=== PATIENT | female | born 1935 | race Caucasian/White ===

== ENCOUNTER 2016-04-13 17:53 | Emergency (ER) | payer OTHER, MEDICARE ==
[2016-04-13 17:58] VITALS: BP 177/78; PULSE 79; TEMP 98.3; BMI 26.2
--- NOTE | 2016-04-13 18:19 | PDOC ---
History of Present Illness - General History Source: Patient, Family, Old Records Exam Limitations: No Limitations - History of Present Illness Initial Comments: 04/13/16 18:49 The patient is a 81 year old female with a significant past medical history of suc-vqbyemz-jokmsyahg diabetes and hypertension (on medication) who presents to the emergency department today for further evaluation of left wrist pain for one hour. The patient states that she was bringing her recycling in when she tripped and braced herself with her left hand against the door. The patient states that when her left hand made contact with the door she heard a crunch in her left wrist. The patient reports associated swelling in her left wrist. The patient reports that she did not hit the ground. The patient denies head trauma, LOC, or dizziness. The patient denies fever, chills, and sweats. The patient denies nausea, vomiting, and diarrhea. The patient denies chest pain, cough, and shortness of breath. PCP: Dr. Popeye Hendricks [phone] PAST MEDICAL HISTORY: eo-aptbzze-udkzzhzly diabetes, hypertension PAST SURGICAL HISTORY: No significant history reported FAMILY HISTORY: No pertinent history reported SOCIAL HISTORY: None reported MEDICATIONS: Reviewed ALLERGIES: As per nursing notes <Allen Blood - Last Filed: 04/13/16 20:54> - General History Source: Patient Exam Limitations: No Limitations <Aurelia Yadav - Last Filed: 04/16/16 07:38> - General Chief Complaint: Pain, Acute Stated Complaint: LEFT WRIST PAIN Time Seen by Provider: 04/13/16 18:10 Past History <Allen Blood - Last Filed: 04/13/16 20:54> - Past Medical History Anemia: No Asthma: No Cancer: Yes (RIGHT BREAST 2006) Cardiac Disorders: No CVA: No COPD: No CHF: No Dementia: No Diabetes: Yes (2009, [id number]) GI Disorders: No Disorders: No HTN: Yes Hypercholesterolemia: Yes Liver Disease: No Seizures: No Thyroid Disease: Yes (GOITER-NO MEDS) - Surgical History Abdominal Surgery: No Appendectomy: No Cardiac Surgery: No Cholecystectomy: No Lung Surgery: No Neurologic Surgery: No Orthopedic Surgery: No - Immunization History Td Vaccination: No TDAP Vaccination: No Immunization Up to Date: No - Psycho/Social/Smoking Cessation Hx Anxiety: Yes Suicidal Ideation: No Smoking Status: Yes Smoking History: Former smoker Have you smoked in the past 12 months: No Number of Cigarettes Smoked Daily: 0 If you are a former smoker, when did you quit?: 1960S Information on smoking cessation initiated: No Hx Alcohol Use: No Drug/Substance Use Hx: No Substance Use Type: None Hx Substance Use Treatment: No <Aurelia Yadav - Last Filed: 04/16/16 07:38> - Past Medical History Allergies/Adverse Reactions: Allergies Allergy/AdvReac Type Severity Reaction Status Date / Time bacitracin Allergy Intermediate Verified 04/13/16 17:54 erythromycin base Allergy Intermediate Rash Verified 04/13/16 17:54 [Erythromycin Base] Penicillins Allergy Intermediate Rash Verified 04/13/16 17:54 tetracycline [Tetracycline] Allergy Intermediate Rash Verified 04/13/16 17:54 streptomycin [Streptomycin] Allergy Verified 04/13/16 17:54 Vglwont-Zcj-Jmj Reductase AdvReac Intermediate myalgias Verified 04/13/16 17:54 Inhibitor Home Medications: Ambulatory Orders Glimepiride 1 mg PO DAILY 01/28/12 Losartan Potassium 25 mg PO DAILY 05/11/15 Cholecalciferol (Vitamin D3) [Vitamin D3] 1,000 unit PO DAILY tablet 05/17/15 Review of Systems - Review of Systems Able to Perform ROS?: Yes Comments:: 04/13/16 18:49 GENERAL/CONSTITUTIONAL: No: fever, chills, weakness, loss of appetite. HEAD, EYES, EARS, NOSE AND THROAT: No: change in vision, ear pain, discharge, sore throat, throat swelling. CARDIOVASCULAR: No: chest pain, lightheadedness, palpitations, syncope RESPIRATORY: No: cough, shortness of breath, wheezing, hemoptysis, stridor. GASTROINTESTINAL: No: nausea, vomiting, abdominal cramping, diarrhea, rectal bleeding, constipation. GENITOURINARY: No: dysuria, hematuria, frequency, urgency, flank pain. MUSCULOSKELETAL: Yes: Left wrist pain and swelling. No: back pain, neck pain. SKIN: No: lesions, pallor, rash or easy bruising. NEUROLOGIC: No: headache, vertigo, paresthesias, weakness ENDOCRINE: No: unexplained weight gain or loss HEMATOLOGIC/LYMPHATIC: No: anemia, easy bleeding, swelling nodes <Allen Blood - Last Filed: 04/13/16 20:54> *Physical Exam - Vital Signs Last Vital Signs Temp Pulse Resp BP Pulse Ox 98.3 F 79 18 177/78 100 04/13/16 17:53 04/13/16 17:53 04/13/16 17:53 04/13/16 17:53 04/13/16 17:53 - Physical Exam Comments: 04/13/16 19:31 GENERAL: The patient is in no acute distress. HEAD: Normal with no signs of trauma. EYES: PERRLA, EOMI, sclera anicteric, conjunctiva clear. ENT: Ears normal, nares patent, oropharynx clear without exudates. Moist mucous membranes. NECK: Normal range of motion, supple without lymphadenopathy, JVD, or masses. LUNGS: Breath sounds equal, clear to auscultation bilaterally. No wheezes, and no crackles. HEART:Regular rate and rhythm, normal S1 and S2 without murmur, rub or gallop. ABDOMEN: Soft, nontender, normoactive bowel sounds. No guarding, no rebound. EXTREMITIES: (+) Left hand Dorsum proximum metacarpal swelling and tenderness. Limited ROM at wrist. Radial medial and ulner motor and sensation intact. Slightly limited by pain Normal range of motion, no edema. No clubbing or cyanosis. NEUROLOGICAL: Cranial nerves II through XII grossly intact. Normal speech. No focal neurological deficits. MUSCULOSKELETAL: Back nontender to palpation, no CVA tenderness SKIN: Warm, Dry, normal turgor, no rashes or lesions noted. <Allen Blood - Last Filed: 04/13/16 20:54> - Vital Signs Last Vital Signs Temp Pulse Resp BP Pulse Ox 98.3 F 79 18 177/78 100 04/13/16 17:53 04/13/16 17:53 04/13/16 17:53 04/13/16 17:53 04/13/16 17:53 <Aurelia Yadav - Last Filed: 04/16/16 07:38> Procedures - Splinting Splint Location: Left: Wrist Pre-Proc Neuro Vasc Exam: normal Hand-Made Type: orthoglass Splint Type: Yes: Thumb Spica Post-Proc Neuro Vasc Exam: normal Gerardo Bandage: yes Sling: Yes Complications: No <Aurelia Yadav - Last Filed: 04/16/16 07:38> ED Treatment Course - RADIOLOGY Radiology Studies Ordered: Category Date Time Status WRIST-LEFT [RAD] Stat Radiology 04/13/16 17:58 Ordered <Aurelia Yadav - Last Filed: 04/16/16 07:38> Medical Decision Making - Medical Decision Making 04/13/16 20:53 Wrist X-ray Impression: No fracture or acute pathology. Read and interpreted by radiologist Dr. Lincoln Boland MD. <Allen Blood - Last Filed: 04/13/16 20:54> - Medical Decision Making 04/13/16 18:19 A portion of this note was documented by scribe services under my direction. I have reviewed the details of the note, within reason, and agree with the documentation with the following case summary and management plan written by me. Nursing documentation reviewed and incorporated into medical decision making 04/13/16 19:04 This is an 81 yo F with a history of DM, HTN, HLD left hand dominant who presents to the ER with a complaint of left hand trauma She was returning home While walking up the stairs, she tripped, struck her hand No head trauma No LOC No Amnesia Pt presents due to pain over the dorsum of the left hand She has an area of swelling over the proximal 2nd metacarpal sensation intact Motor limited due to pain 2+ RP 2+ UP 04/13/16 19:05 Xray does not seem to demonstrate a fracture given swelling, will place in splint Will discharge to home Pt has seen Dr. Mackenzie in the past She will be going to [place] in 2 days and will be away for 1 week she will follow up when she returns Thumb spica applied Pt given instructions re: when to remove this splint (swelling, pain, color change, temperature change) <Aurelia Yadav - Last Filed: 04/16/16 07:38> *DC/Admit/Observation/Transfer - Attestations Scribe Attestion: 04/13/16 18:50 Documentation prepared by Allen Blood, acting as medical charge entry specialist for Aurelia Yadav MD. <Allen Blood - Last Filed: 04/13/16 20:54> - Discharge Dispostion Admit: No <Aurelia Yadav - Last Filed: 04/16/16 07:38> Diagnosis at time of Disposition: Wrist pain, acute Qualifiers: Laterality: left Qualified Code(s): M25.532 - Pain in left wrist - Discharge Dispostion Disposition: HOME Condition at time of disposition: Stable - Referrals Referrals: Popeye Hendricks MD [Primary Care Provider] - Chris Pimentel MD [Staff Physician] - - Patient Instructions Printed Discharge Instructions: DI for Wrist Pain Additional Instructions: Marianne Thank you for coming in to the ER today Your x ray appears normal but you do have swelling over the distal wrist/ proximal metacarpals Please wear splint as is comfortable for you If your pain worsens, please keep the splint on You must follow up with Dr Emery when you return
== END 2016-04-13 19:41 | disposition home or self-care (01) ==
LOC: FER 17:53
PROC: 2W3FX1Z Immobilization of Left Hand using Splint (ICD-10-PCS; principal; 2016-04-13)
DX: M25.532 Pain in left wrist (principal); W22.01XA Walked into wall, initial encounter; Y93.89 Activity, other specified; Y92.009 Unspecified place in unspecified non-institutional (private) residence as the place of occurrence of the external cause; E11.9 Type 2 diabetes mellitus without complications; I10 Essential (primary) hypertension; E78.00 Pure hypercholesterolemia, unspecified; E07.9 Disorder of thyroid, unspecified; Z87.891 Personal history of nicotine dependence
CPT/HCPCS: 29125; 73110-TC-LT; 99282-25

== ENCOUNTER 2017-01-13 11:38 | Emergency (ER) | payer OTHER, MEDICARE ==
--- NOTE | 2017-01-13 11:42 | PDOC ---
History of Present Illness - General Stated Complaint: L WRIST AND ELBOW INJURY Time Seen by Provider: 01/13/17 11:42 - History of Present Illness Initial Comments: 01/13/17 12:24 81yo female with a mechanical fall at home. States she was walking when she tripped over an electrical cord which was on the floor. States she fell onto her L arm and now c/o L wrist, forearm, elbow pain. States she also hit her L knee. States she has injuryed her L wrist before (fracture back in March) and presents wearing a velcro brace to L wrist. Pt with FROM of elbow and wrist. Pt denies hitting her head. No loc. No neck or back pain. No cp/sob/ palpitations. No lightheaded or dizziness. No weakness. No paresthesias. Pt denies f/c. No abd pain. No n/v/d. No dysuria. States chronic pain to hips and knees, but no new pain. No neck or back pain. Denies all other complaints. 01/13/17 12:27 PMH: HLD, HTN, DM, CKD PSHx: L shoulder sx 01/13/17 12:28 PCP: Dr. Popeye Hendricks [phone] 01/13/17 12:46 Past History - Past Medical History Allergies/Adverse Reactions: Allergies Allergy/AdvReac Type Severity Reaction Status Date / Time bacitracin Allergy Intermediate Verified 01/13/17 12:38 erythromycin base Allergy Intermediate Rash Verified 01/13/17 12:38 [Erythromycin Base] Penicillins Allergy Intermediate Rash Verified 01/13/17 12:38 tetracycline [Tetracycline] Allergy Intermediate Rash Verified 01/13/17 12:38 streptomycin [Streptomycin] Allergy Verified 01/13/17 12:38 Orylcpg-Mgj-Jof Reductase AdvReac Intermediate myalgias Verified 01/13/17 12:38 Inhibitor Home Medications: Ambulatory Orders Cholecalciferol (Vitamin D3) [Vitamin D3] 1,000 unit PO DAILY tablet 05/17/15 Metoprolol Succinate 25 mg PO AM tablet 11/22/16 Anemia: No Asthma: No Cancer: Yes (RIGHT BREAST 2006) Cardiac Disorders: No CVA: No COPD: No CHF: No Dementia: No Diabetes: Yes (2009, [id number]) GI Disorders: No Disorders: No HTN: Yes Hypercholesterolemia: Yes Liver Disease: No Seizures: No Thyroid Disease: Yes (GOITER-NO MEDS) - Surgical History Abdominal Surgery: No Appendectomy: No Cardiac Surgery: No Cholecystectomy: No Lung Surgery: No Neurologic Surgery: No Orthopedic Surgery: No - Immunization History Td Vaccination: No TDAP Vaccination: No Immunization Up to Date: No - Suicide/Smoking/Psychosocial Hx Smoking Status: Yes Smoking History: Former smoker Have you smoked in the past 12 months: No Number of Cigarettes Smoked Daily: 0 If you are a former smoker, when did you quit?: 1960S Hx Alcohol Use: No Drug/Substance Use Hx: No Substance Use Type: None Hx Substance Use Treatment: No Review of Systems - Review of Systems Able to Perform ROS?: Yes Is the patient limited Cymraes proficient: No Constitutional: No: Chills, Fever, Weakness HEENTM: No: Blurred Vision, Nose Congestion, Throat Pain Respiratory: No: Cough, Shortness of Breath Cardiac (ROS): No: Chest Pain, Edema, Irregular Heart Rate ABD/GI: No: Diarrhea, Nausea, Vomiting : No: Burning, Dysuria, Frequency, Urgency Musculoskeletal: Yes: Joint Pain, Other (LUE pain to wrist, forearm, humerus). No: Back Pain, Neck Pain Integumentary: No: Rash Neurological: No: Headache, Numbness, Paresthesia, Weakness, Unsteady Gait, Ataxia, Dizziness All Other Systems: Reviewed and Negative *Physical Exam - Vital Signs 01/13/17 12:47 Selected Entries 01/13/17 11:39 Temperature 97.4 F L Pulse Rate 89 Respiratory 20 Rate Blood Pressure 111/34 O2 Sat by Pulse 96 Oximetry (%) Weight 68.039 kg - Physical Exam General Appearance: Yes: Nourished, Appropriately Dressed. No: Apparent Distress HEENT: positive: EOMI. negative: Rhinorrhea Neck: positive: Trachea midline, Supple, Other (no midline ttp of cervical spine , FROM of cervical spine). negative: Tender Respiratory/Chest: positive: Lungs Clear, Normal Breath Sounds. negative: Respiratory Distress, Crackles, Rales, Rhonchi, Wheezing Cardiovascular: positive: Regular Rhythm, Regular Rate, S1, S2 Vascular Pulses: Dorsalis-Pedis (R): 2+, Doralis-Pedis (L): 2+ Gastrointestinal/Abdominal: positive: Normal Bowel Sounds, Soft. negative: Distended, Tenderness Musculoskeletal: positive: Other (no midline t or L spine ttp, no stepoffs or deformities). negative: CVA Tenderness (R), CVA Tenderness (L), Vertebral Tenderness Extremity: positive: Normal Capillary Refill, Other (ttp over L mid forearm, ttp over radial head and olecranon at elbow, ttp distal humerus, FROM of shoulder, radial pulses intact, sensation intact, no ttp over anatomic snuff box , FROM of elbow and wrist. ) Integumentary: positive: Normal Color, Dry, Warm. negative: Ecchymosis, Bruising Neurologic: positive: nurse informaticist II-XII NML intact, Fully Oriented, Alert, Motor Strength 5/5. negative: Sensory Deficit Medical Decision Making - Medical Decision Making 01/13/17 11:58 a/p: 81yo female with a mechanical fall over an electrical wire -no head injury -no neck or back pain -xrays to LUE -denies wanting pain meds -no other somatic complaints. Ambulated into the ED 01/13/17 12:39 xrays reviewed. No acute fracture. 01/13/17 12:51 discussed all imaging results with the patient. Recommended RICE to the forearm. Discussed all reasons to return to the ED and need for follow up with her PMD. Pt stable for d/c to home. Answered all questions. *DC/Admit/Observation/Transfer Diagnosis at time of Disposition: Wrist pain, acute, Fall, Elbow pain - Discharge Dispostion Disposition: HOME Condition at time of disposition: Stable Admit: No - Referrals Referrals: Popeye Hendricks MD [Staff Physician] - - Patient Instructions Printed Discharge Instructions: DI for Elbow Pain, DI for Wrist Pain Additional Instructions: Please rest and ice your wrist and elbow. Please apply ice to the injured site, 20 min on and 20 min off. Please be careful when walking and avoid further falls. Please follow up with your PMD next week if the pain persists. Please return to the ED with any further concerns. - Post Discharge Activity
[2017-01-13 12:46] VITALS: BP 111/34; PULSE 89; TEMP 97.4; BMI 25.7
== END 2017-01-13 12:55 | disposition home or self-care (01) ==
LOC: FER 11:38
DX: M25.532 Pain in left wrist (principal); M25.522 Pain in left elbow; E78.5 Hyperlipidemia, unspecified; I12.9 Hypertensive chronic kidney disease with stage 1 through stage 4 chronic kidney disease, or unspecified chronic kidney disease; E11.22 Type 2 diabetes mellitus with diabetic chronic kidney disease; N18.9 Chronic kidney disease, unspecified; W18.09XA Striking against other object with subsequent fall, initial encounter; Y93.01 Activity, walking, marching and hiking; Y92.009 Unspecified place in unspecified non-institutional (private) residence as the place of occurrence of the external cause
CPT/HCPCS: 73060-TC-LT; 73090-TC-LT; 73110-TC-LT; 99281-25

== ENCOUNTER 2017-03-21 10:10 | Emergency (ER) | payer OTHER, MEDICARE ==
[2017-03-21 10:39] VITALS: BP 183/90; PULSE 100; TEMP 97.4; BMI 26.6
[2017-03-21] MEDS ORDERED: ACETAMINOPHEN 325 MG TABLET (FP) PO ONE (10:49)
[2017-03-21] MEDS ORDERED: ACETAMINOPHEN 325 MG TABLET (FP) ONE (10:51)
--- NOTE | 2017-03-21 12:15 | PDOC ---
History of Present Illness - General Chief Complaint: Back Pain Stated Complaint: RIGHT LOWER BACK PAIN X 2 DAYS Time Seen by Provider: 03/21/17 10:27 History Source: Patient Exam Limitations: No Limitations - History of Present Illness Initial Comments: 03/21/17 12:09 CHIEF COMPLAINT: Right lower back pain radiating to the right hip since yesterday. HISTORY OF PRESENT ILLNESS: Patient with history of diabetes on oral agents, well-controlled, with hemoglobin A1c in the sixes. Patient was doing well until yesterday, when she started to notice some pain in the right lower back down in the sacroiliac region. The pain radiates to the right hip. She is able to ambulate, but the pain does get worse with range of motion of the right hip. The pain also gets worse with turning or standing up. There is no radiation to the right leg. There is no numbness or weakness. There is no change in bowel or bladder function. REVIEW OF SYSTEMS: GENERAL/CONSTITUTIONAL: No fever or chills. No weakness. No weight change. HEAD, EYES, EARS, NOSE AND THROAT: No change in vision. No ear pain or discharge. No sore throat. CARDIOVASCULAR: No chest pain or shortness of breath. RESPIRATORY: No cough, wheezing, or hemoptysis. GASTROINTESTINAL: No nausea, vomiting, diarrhea or constipation. No rectal bleeding. GENITOURINARY: No dysuria, frequency, or change in urination. MUSCULOSKELETAL: Positive right lower back pain in the sacroiliac region. No joint pains in the extremities. No recent trauma. SKIN AND BREASTS: No rash or easy bruising. NEUROLOGIC: No headache, vertigo, loss of consciousness, or loss of sensation. PSYCHIATRIC: No depression or anxiety. ENDOCRINE: No increased thirst. No abnormal weight change. HEMATOLOGIC/LYMPHATIC: No anemia, easy bleeding, or history of blood clots. ALLERGIC/IMMUNOLOGIC: No hives or skin allergy. No latex allergy. Past History - Past Medical History Allergies/Adverse Reactions: Allergies Allergy/AdvReac Type Severity Reaction Status Date / Time bacitracin Allergy Intermediate Verified 03/21/17 10:22 erythromycin base Allergy Intermediate Rash Verified 03/21/17 10:22 [Erythromycin Base] Penicillins Allergy Intermediate Rash Verified 03/21/17 10:22 tetracycline [Tetracycline] Allergy Intermediate Rash Verified 03/21/17 10:22 streptomycin [Streptomycin] Allergy Verified 03/21/17 10:22 Afduqzz-Oni-Tqg Reductase AdvReac Intermediate myalgias Verified 03/21/17 10:22 Inhibitor Home Medications: Ambulatory Orders Cholecalciferol (Vitamin D3) [Vitamin D3] 1,000 unit PO DAILY tablet 05/17/15 Metoprolol Succinate 25 mg PO HS tablet 11/22/16 Glimepiride 1 mg PO HS 03/21/17 Oxycodone HCl/Acetaminophen [Oxycodone-Acetaminophen 5-325] 1 each PO ONCE 03/21 Vitamin B Complex 1 each PO DAILY 03/21/17 Anemia: No Asthma: No Cancer: Yes (RIGHT BREAST 2006) Cardiac Disorders: No CVA: No COPD: No CHF: No DVT: No Dementia: No Diabetes: Yes (2009, [id number]) GI Disorders: No Disorders: No HTN: Yes Hypercholesterolemia: Yes Liver Disease: No Seizures: No Thyroid Disease: Yes (GOITER-NO MEDS) - Surgical History Abdominal Surgery: No Appendectomy: No Cardiac Surgery: No Cholecystectomy: No Lung Surgery: No Neurologic Surgery: No Orthopedic Surgery: No - Immunization History Td Vaccination: No TDAP Vaccination: No Immunization Up to Date: No - Suicide/Smoking/Psychosocial Hx Smoking Status: Yes Smoking History: Former smoker Have you smoked in the past 12 months: No Number of Cigarettes Smoked Daily: 0 If you are a former smoker, when did you quit?: 1996 Information on smoking cessation initiated: No Hx Alcohol Use: No Drug/Substance Use Hx: No Substance Use Type: None Hx Substance Use Treatment: No *Physical Exam - Vital Signs Last Vital Signs Temp Pulse Resp BP Pulse Ox 97.4 F L 100 H 15 183/90 97 03/21/17 10:22 03/21/17 10:22 03/21/17 10:22 03/21/17 10:22 03/21/17 10:22 - Physical Exam Comments: 03/21/17 12:12 GENERAL: The patient is awake, alert, and fully oriented, in no acute distress. She is ambulatory without limp. HEAD: Normal with no signs of trauma. EYES: Pupils equal, round and reactive to light, extraocular movements intact, sclera anicteric, conjunctiva clear. ENT: Ears normal, nares patent, oropharynx clear without exudates. Moist mucous membranes. NECK: Normal range of motion, supple without lymphadenopathy, JVD, or masses. LUNGS: Breath sounds equal, clear to auscultation bilaterally. No wheezes, and no crackles. HEART: Regular rate and rhythm, normal S1 and S2 without murmur, rub or gallop. ABDOMEN: Soft, nontender, normoactive bowel sounds. No guarding, no rebound. No masses. BACK: There is right lower lumbar and sacroiliac tenderness to palpation. There is tenderness at the right sciatic notch. There is no erythema or swelling. Skin is normal. The right hip has mild pain with range of motion, but range of motion is otherwise normal. EXTREMITIES: Normal range of motion, mild bilateral ankle edema. No clubbing or cyanosis. No cords, erythema, or tenderness. NEUROLOGICAL: Cranial nerves II through XII grossly intact. Sensation is normal in both legs. Strength is normal in both legs, 5 out of 5 in all muscle groups. Normal speech, normal gait. PSYCH: Normal mood, normal affect. SKIN: Warm, Dry, normal turgor, no rashes or lesions noted. ED Treatment Course - RADIOLOGY Radiology Studies Ordered: Category Date Time Status HIP & PELVIS-RIGHT [RAD] Stat Radiology 03/21/17 10:50 Taken SPINE-LUMBAR SACRAL [RAD] Stat Radiology 03/21/17 10:49 Taken - Medications Given in the ED: ED Medications Discontinued Medications Generic Name Dose Route Start Last Admin Trade Name Freq PRN Reason Stop Dose Admin Acetaminophen 650 mg 03/21/17 10:49 03/21/17 10:50 Tylenol - PO 03/21/17 10:50 650 mg ONCE ONE Administration Medical Decision Making - Medical Decision Making 03/21/17 12:14 Patient presents with lower back pain in the right sacroiliac and sciatic region without radiation to the leg. There is some radiation to the right hip. There are no neurological deficits on examination and no changes in bowel or bladder function. X-rays of the lumbosacral spine and right hip were performed. On preliminary review by me, there is scoliosis of the lumbar spine with mild spondylolisthesis and degenerative changes of the spine. The right hip is normal. Impression: Musculoskeletal pain in the lower back and right hip. Possibly related to scoliosis and or osteoarthritis. Plan: Patient already has Naprosyn and Tylenol at home. She also has a heating pad. I advised that she take these medications and used a warm heating pad to help relieve the pain. I have further advise follow-up with her primary care physician Dr. Hendricks next week. *DC/Admit/Observation/Transfer Diagnosis at time of Disposition: Low back pain Qualifiers: Chronicity: acute Back pain laterality: right Sciatica presence: without sciatica Qualified Code(s): M54.5 - Low back pain - Discharge Dispostion Disposition: HOME Condition at time of disposition: Good Admit: No - Referrals Referrals: Popeye Hendricks MD [Primary Care Provider] - 3 days - Patient Instructions Printed Discharge Instructions: DI for Low Back Pain Additional Instructions: You were evaluated today for low back pain and right hip pain. The x-rays show a mild curvature of the spine and some mild arthritis. He should expect the pain to get better with time. Take Naprosyn 220 mg twice a day with a full stomach as needed for pain. Take Tylenol 500 mg every 4 hours as needed for pain. Apply a warm heating pad, but avoid it getting too hot, to help relieve the pain. Avoid oxycodone if possible. Follow-up with Dr. Hendricks in a few days. Return to the emergency department for any severe or progressive symptoms. - Post Discharge Activity
== END 2017-03-21 12:24 | disposition home or self-care (01) ==
LOC: FER 10:10
DX: M54.5 Low back pain (principal); E11.9 Type 2 diabetes mellitus without complications; Z79.84 Long term (current) use of oral hypoglycemic drugs; Z85.3 Personal history of malignant neoplasm of breast; E07.9 Disorder of thyroid, unspecified; E78.00 Pure hypercholesterolemia, unspecified; I10 Essential (primary) hypertension
CPT/HCPCS: 72100-TC; 73523-TC; 99282-25

== ENCOUNTER 2017-08-03 10:22 | Observation (INO) | payer OTHER, MEDICARE ==
[2017-08-03] MEDS ORDERED: DIPHTH,PERTUSS(ACELL),TET 0.5 ML DISP.SYRIN IM ONE (10:29)
[2017-08-03] MEDS ORDERED: CEFTRIAXONE 1,000 MG in DEXTROSE 5%-WATER - 50 ML IVPB ONE (10:29)
--- NOTE | 2017-08-03 10:34 | PDOC ---
History of Present Illness - General Chief Complaint: Bite Stated Complaint: RT HAND CAT BITE/SCRATCH Time Seen by Provider: 08/03/17 10:23 History Source: Patient, Spouse Exam Limitations: No Limitations - History of Present Illness Initial Comments: 08/03/17 10:30 CHIEF COMPLAINT: Cat scratch and bite to the right hand yesterday, now with swelling. HISTORY OF PRESENT ILLNESS: 82-year-old female with a history of diabetes presents complaining of a cat bite and cat scratches to the right dorsal hand which occurred yesterday. The hand became swollen and painful. Today the pain is better and the swelling is down, but it still is uncomfortable. The patient comes in because she has not had a tetanus shot for a very long time. She denies fever or chills. She denies any other areas of injuries. She denies any other acute medical symptoms. REVIEW OF SYSTEMS: GENERAL/CONSTITUTIONAL: No fever or chills. No weakness. No weight change. HEAD, EYES, EARS, NOSE AND THROAT: No change in vision. No ear pain or discharge. No sore throat. CARDIOVASCULAR: No chest pain or shortness of breath. RESPIRATORY: No cough, wheezing, or hemoptysis. GASTROINTESTINAL: No nausea, vomiting, diarrhea or constipation. No rectal bleeding. GENITOURINARY: No dysuria, frequency, or change in urination. MUSCULOSKELETAL: Right hand pain and swelling, better since yesterday, started after a cat bite. No neck or back pain. SKIN AND BREASTS: No rash or easy bruising. Positive cat scratch and bite to the right dorsal hand. NEUROLOGIC: No headache, vertigo, loss of consciousness, or loss of sensation. PSYCHIATRIC: No depression or anxiety. ENDOCRINE: No increased thirst. No abnormal weight change. HEMATOLOGIC/LYMPHATIC: No anemia, easy bleeding, or history of blood clots. ALLERGIC/IMMUNOLOGIC: No hives or skin allergy. No latex allergy. History of penicillin ALLERGY, only skin rash, no history of anaphylaxis. Past History - Past Medical History Allergies/Adverse Reactions: Allergies Allergy/AdvReac Type Severity Reaction Status Date / Time bacitracin Allergy Intermediate Verified 08/03/17 10:23 erythromycin base Allergy Intermediate Rash Verified 08/03/17 10:23 [Erythromycin Base] Penicillins Allergy Intermediate Rash Verified 08/03/17 10:23 tetracycline [Tetracycline] Allergy Intermediate Rash Verified 08/03/17 10:23 streptomycin [Streptomycin] Allergy Verified 08/03/17 10:23 Smdfves-Lsc-Xmt Reductase AdvReac Intermediate myalgias Verified 08/03/17 10:23 Inhibitor Home Medications: Ambulatory Orders Cholecalciferol (Vitamin D3) [Vitamin D3] 1,000 unit PO DAILY tablet 05/17/15 Metoprolol Succinate 25 mg PO HS tablet 11/22/16 Glimepiride 1 mg PO DAILY 03/21/17 Vitamin B Complex 1 each PO DAILY 03/21/17 Anemia: No Asthma: No Cancer: Yes (RIGHT BREAST 2006) Cardiac Disorders: No CVA: No COPD: No CHF: No DVT: No Dementia: No Diabetes: Yes (2009, [id number]) GI Disorders: No Disorders: No HTN: Yes Hypercholesterolemia: Yes Liver Disease: No Seizures: No Thyroid Disease: Yes (GOITER-NO MEDS) - Surgical History Abdominal Surgery: No Appendectomy: No Cardiac Surgery: No Cholecystectomy: No Lung Surgery: No Neurologic Surgery: No Orthopedic Surgery: No - Immunization History Td Vaccination: No TDAP Vaccination: No Immunization Up to Date: No - Suicide/Smoking/Psychosocial Hx Smoking Status: Yes Smoking History: Former smoker Have you smoked in the past 12 months: No Number of Cigarettes Smoked Daily: 0 If you are a former smoker, when did you quit?: 1996 Information on smoking cessation initiated: No Hx Alcohol Use: No Drug/Substance Use Hx: No Substance Use Type: None Hx Substance Use Treatment: No *Physical Exam - Vital Signs Last Vital Signs Temp Pulse Resp BP Pulse Ox 97.9 F 90 18 141/87 98 08/03/17 10:22 08/03/17 10:22 08/03/17 10:22 08/03/17 10:22 08/03/17 10:22 - Physical Exam Comments: 08/03/17 10:32 GENERAL: The patient is awake, alert, and fully oriented, in no acute distress. She comes to the ED ambulatory, complaining of right hand pain. HEAD: Normal with no signs of trauma. EYES: Pupils equal, round and reactive to light, extraocular movements intact, sclera anicteric, conjunctiva clear. EXTREMITIES: The right hand is notable for some ecchymosis over the dorsal surface just proximal to the third fourth and fifth MCP joints. There is tenderness and swelling in this region, with some crepitations on palpation of the dorsal hand. Patient is able to make a fist and extend her fingers normally. There is no drainage. There are 2 tiny puncture wounds on the dorsal surface of the hand. NEUROLOGICAL: Normal speech, normal gait. PSYCH: Normal mood, normal affect. SKIN: Findings as noted above under extremities. No other skin rash. ED Treatment Course - LABORATORY CBC & Chemistry Diagram: 08/03/17 10:45 08/03/17 11:00 - RADIOLOGY Radiology Studies Ordered: Category Date Time Status HAND- RIGHT [RAD] Stat Radiology 08/03/17 10:29 Ordered Comments: R hand with swelling and soft tissue possilbe air in the tissues Medical Decision Making - Medical Decision Making 08/03/17 12:02 82-year-old diabetic presents after a cat bite to the right hand which occurred yesterday. She has redness and swelling to the hand today. There is some soft tissue crepitus on palpation. She is afebrile and her white blood cell count is normal, however given the redness and the crepitus, and her age and her diabetes, she will be treated conservatively with IV antibiotics in the hospital. Ceftriaxone was started along with clindamycin. The [facility] hospitalist team was contacted, I spoke with Yessenia Padilla for endorsement. The supervising admitting attending is Dr. Krueger. 08/03/17 12:06 Consult called jeffery Morgan. Await call back. *DC/Admit/Observation/Transfer Diagnosis at time of Disposition: Cellulitis and abscess of hand Cat bite of hand Qualifiers: Encounter type: initial encounter Laterality: right Qualified Code(s): S61.451A - Open bite of right hand, initial encounter; W55.01XA - Bitten by cat , initial encounter - Discharge Dispostion Condition at time of disposition: Stable Decision to Admit order: Yes Decision to Admit order Date/Time: 08/03/17 12:05 endorsed to Randy - Referrals Referrals: Popeye Hendricks MD [Primary Care Provider] - - Patient Instructions - Post Discharge Activity
[2017-08-03] MEDS ORDERED: cefTRIAXone SODIUM 1 GM VIAL ONE (10:44)
[2017-08-03] MEDS ORDERED: CLINDAMYCIN 900 MG PREMIX IVPB 900 MG/50 ML BAG IVPB ONE (11:04)
[2017-08-03 11:10] LABS: BASO % 0.6 % (0-2.0); EOS % 1.4 % (0-4.5); HEMATOCRIT 39.4 % (32.4-45.2); HEMOGLOBIN 13.2 GM/dl (10.7-15.3); LYMPH % 29.2 % (8-40); MCH 28.3 pg (25.7-33.7); MCHC 33.4 g/dl (32.0-36.0); MEAN CELL VOLUME 84.6 fl (80-96); MEAN PLT VOLUME 7.8 fl (7.5-11.1); MONO % 6.5 % (3.8-10.2); NEUT % 62.3 % (42.8-82.8); PLATELET COUNT 265 K/MM3 (134-434); RBC 4.66 M/mm3 (3.60-5.2); WHITE BLOOD COUNT 6.3 K/mm3 (4.0-10.8)
[2017-08-03] MEDS ORDERED: CLINDAMYCIN PHOSPHATE 300 MG/2 ML VIAL ONE (11:40)
[2017-08-03] MEDS ORDERED: CLINDAMYCIN PHOSPHATE 600 MG/4 ML VIAL ONE (11:41)
[2017-08-03 11:43] LABS: ALBUMIN 3.9 g/dl (3.5-5.0); ALK PHOS 59 U/L (32-92); ANION GAP 9 (8-16); BILIRUBIN,TOTAL 0.9 mg/dl (0.2-1.0); BLOOD UREA NITROGEN 15 mg/dl (7-18); CALCIUM 9.2 mg/dl (8.4-10.2); CHLORIDE 101 mmol/L (98-107); CO2 26 mmol/L (22-28); CREATININE 1.1 mg/dl (0.6-1.3); GLUCOSE,RANDOM 124 mg/dl (74-106); POTASSIUM 3.8 mmol/L (3.5-5.1); SGOT/AST 24 U/L (10-42); SGPT/ALT 18 U/L (10-40); SODIUM 136 mmol/L (136-145)
--- NOTE | 2017-08-03 14:44 | EKG ---
Test Reason : Blood Pressure : / mmHG Vent. Rate : 085 BPM Atrial Rate : 085 BPM P-R Int : 184 ms QRS Dur : 076 ms QT Int : 370 ms P-R-T Axes : 047 010 042 degrees QTc Int : 440 ms NORMAL SINUS RHYTHM POSSIBLE INFERIOR INFARCT , AGE UNDETERMINED ABNORMAL ECG NO PREVIOUS ECGS AVAILABLE Confirmed by MD Leroy, Elias ([id number]) on 08/03/2017 2:44:01 PM Referred By: EVERTON FERRER Confirmed By:Elias Harper MD
--- NOTE | 2017-08-03 16:08 | HP ---
CHIEF COMPLAINT: Cat bite PCP: Eladio HISTORY OF PRESENT ILLNESS: This is an 82 year old female with PMHx of NIDDM, HTN, who presented to the ED with right hand swelling and pain after a cat bite/scratch yesterday. The patient reports her hand became swollen after the incident yesterday, but has improved today. She reports coming to the ED to get a tetanus shot. She denies any fever or chills. She denies any other symptoms at this time. ER course was notable for: (1) Temp 97.9, pulse 90, BP 141/87, resp 18, Ow 98% on RA (2) Right hand x-ray: Streaky lucency seen in the dorsal soft tissues of the hand by the metacarpals (3) Evaluated by hand surgery in the ED, awaiting report Recent Travel: denies PAST MEDICAL HISTORY: as above PAST SURGICAL HISTORY: breast lumpectomy (radiation), hysterectomy Social History: Smoking: denies Alcohol: denies Drugs: denies Family History: Allergies bacitracin Allergy (Intermediate, Verified 08/03/17 10:23) erythromycin base [Erythromycin Base] Allergy (Intermediate, Verified 08/03/17 10:23) Rash Penicillins Allergy (Intermediate, Verified 08/03/17 10:23) Rash tetracycline [Tetracycline] Allergy (Intermediate, Verified 08/03/17 10:23) Rash streptomycin [Streptomycin] Allergy (Verified 08/03/17 10:23) Ppyhopx-Afc-Hoc Reductase Inhibitor Adverse Reaction (Intermediate, Verified 11/12 10:23) myalgias HOME MEDICATIONS: Home Medications Medication Instructions Recorded Cholecalciferol (Vitamin D3) 1,000 unit PO DAILY tablet 05/17/15 [Vitamin D3] Metoprolol Succinate 25 mg PO DAILY tablet 11/22/16 Glimepiride 1 mg PO DAILY 03/21/17 Vitamin B Complex 1 each PO DAILY 03/21/17 REVIEW OF SYSTEMS CONSTITUTIONAL: Absent: fever, chills, diaphoresis, generalized weakness, malaise, loss of appetite HEENT: Absent: rhinorrhea, nasal congestion, throat pain, throat swelling, difficulty swallowing, mouth swelling, ear pain, eye pain, visual changes CARDIOVASCULAR: Absent: chest pain, syncope, palpitations, irregular heart rate, lightheadedness , peripheral edema RESPIRATORY: Absent: cough, shortness of breath, dyspnea with exertion, orthopnea, wheezing, stridor, hemoptysis GASTROINTESTINAL: Absent: abdominal pain, abdominal distension, nausea, vomiting, diarrhea, constipation, melena, hematochezia GENITOURINARY: Absent: dysuria, frequency, urgency, hesitancy, hematuria, flank pain, genital pain MUSCULOSKELETAL: Absent: myalgia, arthralgia, joint swelling, back pain, neck pain SKIN: Right hand swelling and pain since being scratched and bit by her indoor/ outdoor cat. Absent: itching, pallor HEMATOLOGIC/IMMUNOLOGIC: Absent: easy bleeding, easy bruising, lymphadenopathy, frequent infections ENDOCRINE: Absent: unexplained weight gain, unexplained weight loss, heat intolerance, cold intolerance NEUROLOGIC: Absent: headache, focal weakness or paresthesias, dizziness, unsteady gait, seizure, mental status changes, bladder or bowel incontinence PSYCHIATRIC: Absent: anxiety, depression, suicidal or homicidal ideation, hallucinations. PHYSICAL EXAMINATION Vital Signs - 24 hr 08/03/17 08/03/17 10:22 15:45 Temperature 97.9 F 98.4 F Pulse Rate 90 Pulse Rate [ 78 Left Apical] Respiratory 18 16 Rate Blood Pressure 141/87 Blood Pressure 150/67 [Right Arm] O2 Sat by Pulse 98 99 Oximetry (%) GENERAL: Awake, alert, and fully oriented, in no acute distress. HEAD: Normal with no signs of trauma. LUNGS: Breath sounds equal, clear to auscultation bilaterally. No wheezes, and no crackles. No accessory muscle use. HEART: Regular rate and rhythm, normal S1 and S ABDOMEN: Soft, nontender, not distended, normoactive bowel sounds MUSCULOSKELETAL: Normal range of motion at all joints. No bony deformities or tenderness. No CVA tenderness. UPPER EXTREMITIES: Right hand with dressing and is being elevated. Dressing changed in the ED by surgery so patient did not want it unwrapped. LOWER EXTREMITIES: 2+ pulses, warm, well-perfused. No calf tenderness. No peripheral edema. NEUROLOGICAL: Cranial nerves II-XII intact. Normal speech. Normal gait. PSYCHIATRIC: Cooperative. Good eye contact. Appropriate mood and affect. SKIN: Warm, dry, normal turgor, no rashes or lesions noted, normal capillary refill. Laboratory Results - last 24 hr 08/03/17 08/03/17 08/03/17 10:45 11:00 11:00 WBC 6.3 RBC 4.66 Hgb 13.2 Hct 39.4 MCV 84.6 MCH 28.3 MCHC 33.4 RDW 13.0 Plt Count 265 MPV 7.8 Absolute Neuts (auto) 4.0 Neutrophils % 62.3 Lymphocytes % 29.2 Monocytes % 6.5 Eosinophils % 1.4 Basophils % 0.6 Sodium 136 Potassium 3.8 Chloride 101 Carbon Dioxide 26 Anion Gap 9 BUN 15 Creatinine 1.1 D Creat Clearance w eGFR 47.32 Random Glucose 124 H Lactic Acid 1.9 Calcium 9.2 Total Bilirubin 0.9 D AST 24 ALT 18 Alkaline Phosphatase 59 Total Protein 7.0 Albumin 3.9 Assessment: This is an 82 year old female with PMHx of NIDDM, HTN, who presented to the ED with right hand swelling and pain after a cat bite/scratch yesterday, Plan: 1) Cat scratch/bite, cellulitis - Continue Ceftriaxone - Continue Clindamycin - F/u cultures - Monitor for fevers - F/u ID consult 2) NIDDM - Continue Glimeperide - BGM ACHS - ISS ACHS 3) HTN - Continue home medications 4) F/E/N: - Sodium controlled/diabetic diet 5) Prophylaxis: - SCDs bilaterally - OOB ambulating 6) Dispo: - Once condition improves CODE STATUS: FULL CODE Visit type - Emergency Visit Emergency Visit: Yes ED Registration Date: 08/03/17 Care time: The patient presented to the Emergency Department on the above date and was hospitalized for further evaluation of their emergent condition. - New Patient This patient is new to me today: Yes Date on this admission: 08/03/17 - Critical Care Critical Care patient: No Hospitalist Screening - Colonoscopy Questionnaire Colonoscopy Questionnaire: Colonoscopy Questionnaire - Patient: 50 - 75 years old and never had a screening colonoscopy: Unknown History of colon or rectal polyps, or CA: Unknown History of IBD, Crohn's disease or UC: Unknown History of abdominal radiation therapy as a child: Unknown - Relative: 1 with colon or rectal CA, or polyps at age 60 or younger: Unknown Colon or rectal CA diagnosed at age 45 or younger: Unknown Multiple relatives with colon or rectal CA: Unknown - Outcome: Screening Result: Negative Screen
[2017-08-03 17:41] VITALS: BMI 26.8
--- NOTE | 2017-08-03 18:07 | CONSULT ---
Consult Consult Specialty:: hand surgery Reason for Consultation:: cat bite - History of Present Illness Chief Complaint: cat bite day History of Present Illness: 82y/o female c/o pain and swelling in her right hand which began yesterday after she was bitten by her cat on the dorsum of the right hand. She developed increased pain and swelling since yesterday and came to the ER today to be evaluated. She was started on IV antibiotics and placed into a splint and the extremity was elevated. She is doing much better since she arrived at the ER. She also received teatnus prophaxis. No other associated, aggravating or relieving factors. The cat is owned by the patient. - History Source History Provided By: Patient, Medical Record - Alcohol/Substance Use Hx Alcohol Use: No - Smoking History Smoking history: Former smoker Have you smoked in the past 12 months: No Aproximately how many cigarettes per day: 0 If you are a former smoker, when did you quit?: 1996 Home Medications - Allergies Allergies/Adverse Reactions: Allergies Allergy/AdvReac Type Severity Reaction Status Date / Time bacitracin Allergy Intermediate Verified 08/03/17 10:23 erythromycin base Allergy Intermediate Rash Verified 08/03/17 10:23 [Erythromycin Base] Penicillins Allergy Intermediate Rash Verified 08/03/17 10:23 tetracycline [Tetracycline] Allergy Intermediate Rash Verified 08/03/17 10:23 streptomycin [Streptomycin] Allergy Verified 08/03/17 10:23 Afbzxcr-Lgf-Btr Reductase AdvReac Intermediate myalgias Verified 08/03/17 10:23 Inhibitor - Home Medications Home Medications: Ambulatory Orders Cholecalciferol (Vitamin D3) [Vitamin D3] 1,000 unit PO DAILY tablet 05/17/15 Metoprolol Succinate 25 mg PO DAILY tablet 11/22/16 Glimepiride 1 mg PO DAILY 03/21/17 Vitamin B Complex 1 each PO DAILY 03/21/17 Review of Systems - Review of Systems Constitutional: reports: No Symptoms Eyes: reports: No Symptoms HENT: reports: No Symptoms Neck: reports: No Symptoms Cardiovascular: reports: No Symptoms Respiratory: reports: No Symptoms Gastrointestinal: reports: No Symptoms Genitourinary: reports: No Symptoms Breasts: reports: No Symptoms Reported Musculoskeletal: reports: Extremity Pain, Joint Swelling Integumentary: reports: Erythema Neurological: reports: No Symptoms Endocrine: reports: No Symptoms Hematology/Lymphatic: reports: No Symptoms Psychiatric: reports: No Symptoms Physical Exam Vital Signs: Vital Signs Temperature 98.4 F 08/03/17 15:45 Pulse Rate 78 08/03/17 15:45 Respiratory Rate 16 08/03/17 15:45 Blood Pressure 150/67 08/03/17 15:45 O2 Sat by Pulse Oximetry (%) 99 08/03/17 15:45 Constitutional: Yes: Well Nourished, No Distress, Calm HENT: Yes: Atraumatic, Normocephalic Musculoskeletal: Yes: Other (Right hand: Mild edema and erythema of the dorsum of the right hand. There is no palpable abcess. There is a 2x2mm triangular wound consisitant with a cat bite along the dorsum of the hand. Flexor and extensor tendons intact. No sign of flexor tenosynovitis. Near full motion of the fingers. NVID.) Neurological: Yes: Alert, Oriented Labs: CBC, BMP 08/03/17 10:45 08/03/17 11:00 Imaging - Results X-ray: Report Reviewed, Image Reviewed (Severe degenerative changes) Assessment/Plan #1 right hand cat bite -Discussed today's finding's and treatment options with the patient. She is being admitted for observation. Will stay overnight. I will re-evaluate the hand in the AM. She will remain in the splint and keep the hand elevated. Continue IV abx. will receive Rocephin in AM and likely d/c home tomorrow AM on ABX
[2017-08-03] MEDS: CLINDAMYCIN HCL 150 MG CAPSULE (FP) PO SCH (21:41)
[2017-08-04] MEDS ORDERED: diphenhydrAMINE HCL 25 MG CAPSULE (FP) PO ONE (01:23)
[2017-08-04] MEDS: INSULIN SLIDING SCALE (NOVOLOG) 1 VIAL SQ SCH ×3 (05:32→13:04)
[2017-08-04] MEDS: CLINDAMYCIN HCL 150 MG CAPSULE (FP) PO SCH (06:45)
[2017-08-04 06:47] VITALS: BP 154/78; PULSE 77; TEMP 98
[2017-08-04] MEDS ORDERED: GLIMEPIRIDE 1 MG TABLET (FP) PO SCH (07:00)
--- NOTE | 2017-08-04 08:00 | PN ---
Progress Note, Physician History of Present Illness: She feels well. She has been elevating the hand. Her pain is gone. She has no new complaints. - Current Medication List Current Medications: Active Medications Cholecalciferol (Vitamin D3 -) 1,000 unit PO DAILY [facility] Clindamycin HCl (Cleocin -) 600 mg PO TID [facility] Last Admin: 08/04/17 06:45 Dose: 600 mg Glimepiride (Amaryl -) 1 mg PO ACBK [facility] Last Admin: 08/04/17 06:46 Dose: Not Given Ceftriaxone Sodium (Ceftriaxone 1 Gm-D5w Bag) 1 mls @ 2 mls/hr IVPB DAILY [facility]; Protocol Insulin Aspart (Novolog Vial Sliding Scale -) 1 vial SQ ACHS [facility]; Protocol Last Admin: 08/04/17 06:46 Dose: Not Given Losartan Potassium (Cozaar -) 25 mg PO DAILY [facility] Metoprolol Succinate (Toprol Xl -) 25 mg PO DAILY [facility] Multivit/Ca Carb/B Cmplx/FA/Prenat (Nephro-Mariusz -) 1 tablet PO DAILY [facility] - Objective Vital Signs: Vital Signs Temperature 98.0 F 08/04/17 06:00 Pulse Rate 77 08/04/17 06:00 Respiratory Rate 18 08/04/17 06:00 Blood Pressure 154/78 08/04/17 06:00 O2 Sat by Pulse Oximetry (%) 93 L 08/04/17 06:00 Constitutional: Yes: Well Nourished, No Distress, Calm HENT: Yes: Atraumatic, Normocephalic Musculoskeletal: Yes: Other (Right hand: Edema and erythema has resolved. Full motion of the fingers. wound is healing. No drainage. NVID.) Neurological: Yes: Alert, Oriented Psychiatric: Yes: Alert, Oriented Labs: CBC, BMP 08/03/17 10:45 08/03/17 11:00 Assessment/Plan #1 right hand cat bite -Doing very well, recommend D/C home -Oral abx -follow up this week in office with dr. dorsey
[2017-08-04] MEDS ORDERED: PT OWN MED DRAWER 7, Y5N ONE (08:56)
--- NOTE | 2017-08-04 09:01 | DS ---
Physical Examination Vital Signs: Vital Signs Temperature 98.0 F 08/04/17 06:00 Pulse Rate 77 08/04/17 06:00 Respiratory Rate 18 08/04/17 06:00 Blood Pressure 154/78 08/04/17 06:00 O2 Sat by Pulse Oximetry (%) 93 L 08/04/17 06:00 Labs: CBC, BMP 08/03/17 10:45 08/03/17 11:00 Discharge Summary Reason For Visit: KIERRA BITE ON HAND CELLULITIS AND ABSCESS OF HAND Current Active Problems Cat bite of hand (Acute) Cellulitis and abscess of hand (Acute) Hospital Course: Nicola Francisco spoke to Dr. Odom who recommended discharge with Ceftin 500mg po bid x7 days. Follow-up with Dr. Pimentel on Sunday 08/06. Condition: Improved - Instructions Diet, Activity, Other Instructions: Please return to the ED with new, persistent, or worsening symptoms. Please follow-up with providers as indicated. Complete the full course of Ceftin 500mg by mouth twice a day for 7 days. It is very important that you follow-up with Dr. Pimentel on Saturday08/06/17. Referrals: Popeye Hendricks MD [Primary Care Provider] - 1 Week Chris Pimentel MD [Staff Physician] - (Please follow-up with Dr. Pimentel (surgery) on Saturday for further management of your right hand. ) Disposition: HOME - Home Medications Comprehensive Discharge Medication List: Ambulatory Orders Cholecalciferol (Vitamin D3) [Vitamin D3] 1,000 unit PO DAILY tablet 05/17/15 Metoprolol Succinate 25 mg PO DAILY tablet 11/22/16 Glimepiride 1 mg PO DAILY 03/21/17 Vitamin B Complex 1 each PO DAILY 03/21/17 Cefuroxime Axetil [Ceftin -] 500 mg PO Q12H #14 tablet 08/04/17
[2017-08-04 09:08] LABS: HEMATOCRIT 35.5 % (32.4-45.2); HEMOGLOBIN 11.9 GM/dl (10.7-15.3); MCH 28.1 pg (25.7-33.7); MCHC 33.6 g/dl (32.0-36.0); MEAN CELL VOLUME 83.5 fl (80-96); MEAN PLT VOLUME 7.9 fl (7.5-11.1); PLATELET COUNT 243 K/MM3 (134-434); RBC 4.25 M/mm3 (3.60-5.2); RDW 13.1 % (11.6-15.6); WHITE BLOOD COUNT 5.5 K/mm3 (4.0-10.8)
[2017-08-04] MEDS ORDERED: VITAMIN B COMP W-C 1 EA TABLET PO SCH (10:00)
[2017-08-04] MEDS ORDERED: metoPROLOL SUCCINATE 25 MG TAB.SR.24H (FP) PO SCH (10:00)
[2017-08-04] MEDS ORDERED: CEFTRIAXONE 1,000 MG in DEXTROSE 5%-WATER - 50 ML IVPB SCH (10:00)
[2017-08-04] MEDS ORDERED: CEFTRIAXONE 1 G/50 ML PREMIX 1 ML IVPB SCH (10:00)
[2017-08-04] MEDS ORDERED: CHOLECALCIFEROL (VITAMIN D3) 1,000 UNIT TABLET (FP) PO SCH (10:00)
[2017-08-04] MEDS ORDERED: LOSARTAN POTASSIUM 25 MG TABLET PO SCH (10:00)
== END 2017-08-04 10:00 | disposition home or self-care (01) ==
LOC: FER 10:22 → FM/S 12:06 → UNDOADMOB 14:28
PROVIDERS: ADMIT Hospitalist; ATTEND Registered Nurse
PROC: 3E03329 Introduction of Other Anti-infective into Peripheral Vein, Percutaneous Approach (ICD-10-PCS; principal; 2017-08-03)
PROC: 3E0234Z Introduction of Serum, Toxoid and Vaccine into Muscle, Percutaneous Approach (ICD-10-PCS; 2017-08-03)
DX: L03.113 Cellulitis of right upper limb (principal); L02.511 Cutaneous abscess of right hand; S61.451A Open bite of right hand, initial encounter; S60.511A Abrasion of right hand, initial encounter; W55.01XA Bitten by cat, initial encounter; Y93.9 Activity, unspecified; Y92.9 Unspecified place or not applicable; I10 Essential (primary) hypertension; E78.5 Hyperlipidemia, unspecified; E11.9 Type 2 diabetes mellitus without complications; Z87.891 Personal history of nicotine dependence; Z85.3 Personal history of malignant neoplasm of breast; Z88.0 Allergy status to penicillin; Z88.8 Allergy status to other drugs, medicaments and biological substances
CPT/HCPCS: 36415; 73130-TC-RT-FY; 80053; 82962; 83605; 85025; 85027; 87040; 90471; 90715; 93005; 96365; 96367; 96375; 99285-25; G0378

== ENCOUNTER 2018-07-25 09:00 | Emergency (ER) | payer OTHER, MEDICARE ==
[2018-07-25 09:39] VITALS: BP 139/70; PULSE 75; TEMP 97.9; BMI 27.6
[2018-07-25] MEDS ORDERED: SODIUM CHLORIDE FOR INHALATION 3 ML VIAL.NEB IH ONE (09:49)
--- NOTE | 2018-07-25 10:07 | PDOC ---
History of Present Illness - General Chief Complaint: Sore Throat Stated Complaint: COUGH & SORE THROAT 2-3 DAYS Time Seen by Provider: 07/25/18 09:32 - History of Present Illness Initial Comments: 07/25/18 10:04 83 F with DM, HTN presenting to ED with cough and nasal congestion since last night. Pt reports taking a zyrtec because she noticed her nose was running last night. However, she states that this did not help. When she tried to sleep, she began to cough. Today pt complains of persistent cough as well as sore throat. Denies F/C. Denies CP/SOB. Denies leg swelling. Denies LAURENT. No sick contacts at home. Past History - Past Medical History Allergies/Adverse Reactions: Allergies Allergy/AdvReac Type Severity Reaction Status Date / Time bacitracin Allergy Intermediate Verified 07/25/18 09:35 erythromycin base Allergy Intermediate Rash Verified 07/25/18 09:35 [Erythromycin Base] Penicillins Allergy Intermediate Rash Verified 07/25/18 09:35 tetracycline [Tetracycline] Allergy Intermediate Rash Verified 07/25/18 09:35 streptomycin [Streptomycin] Allergy Verified 07/25/18 09:35 Ljsdjqk-Nvf-Roo Reductase AdvReac Intermediate myalgias Verified 07/25/18 09:35 Inhibitor Home Medications: Ambulatory Orders Glimepiride 1 mg PO DAILY 03/21/17 Atenolol [Tenormin] 25 mg PO DAILY 08/29/17 Anemia: No Asthma: No Cancer: Yes (RIGHT BREAST 2006) Cardiac Disorders: No CVA: No COPD: No CHF: No DVT: No Dementia: No Diabetes: Yes (2009, [id number]) GI Disorders: No Disorders: No HTN: Yes Hypercholesterolemia: Yes Liver Disease: No Seizures: No Thyroid Disease: Yes (GOITER-NO MEDS) - Surgical History Abdominal Surgery: No Appendectomy: No Cardiac Surgery: No Cholecystectomy: No Lung Surgery: No Neurologic Surgery: No Orthopedic Surgery: No - Immunization History Td Vaccination: No TDAP Vaccination: No Immunization Up to Date: No - Suicide/Smoking/Psychosocial Hx Smoking Status: Yes Smoking History: Never smoked Have you smoked in the past 12 months: No Number of Cigarettes Smoked Daily: 0 If you are a former smoker, when did you quit?: 1996 Hx Alcohol Use: No Drug/Substance Use Hx: No Substance Use Type: None Hx Substance Use Treatment: No Review of Systems - Review of Systems Comments:: 07/25/18 10:05 "GENERAL/CONSTITUTIONAL: No fever or chills. No weakness. HEAD, EYES, EARS, NOSE AND THROAT: No change in vision. No ear pain or discharge. No sore throat. CARDIOVASCULAR: No chest pain, no shortness of breath, no loss of consciousness RESPIRATORY: + cough, no wheezing, or hemoptysis. GASTROINTESTINAL: No nausea, vomiting, diarrhea or constipation. GENITOURINARY: No dysuria, frequency, or change in urination. MUSCULOSKELETAL: No joint or muscle swelling or pain. No neck or back pain. SKIN: No rash NEUROLOGIC: No vertigo, no change in strength/sensation. ENDOCRINE: No increased thirst. No abnormal weight change. HEMATOLOGIC/LYMPHATIC: No anemia, easy bleeding, or history of blood clots. ALLERGIC/IMMUNOLOGIC: No hives or skin allergy. *Physical Exam - Vital Signs Last Vital Signs Temp Pulse Resp BP Pulse Ox 97.9 F 75 16 139/70 95 07/25/18 09:31 07/25/18 09:31 07/25/18 09:31 07/25/18 09:31 07/25/18 09:31 - Physical Exam Comments: 07/25/18 10:05 GENERAL: Awake, alert, and fully oriented, in no acute distress. HEAD: No signs of trauma EYES: PERRLA, EOMI, sclera anicteric, conjunctiva clear ENT: Auricles normal inspection, hearing grossly normal, nares patent, oropharynx clear without exudates. Moist mucosa NECK: Nontender, no stepoffs, Normal ROM, supple, no lymphadenopathy, JVD, or masses LUNGS: Breath sounds equal, clear to auscultation bilaterally. No wheezes, and no crackles HEART: Regular rate and rhythm, normal S1 and S2, no murmurs, rubs or gallops ABDOMEN: Soft, nontender, normoactive bowel sounds. No guarding, no rebound. No masses EXTREMITIES: Normal range of motion, no edema. No clubbing or cyanosis. No cords, erythema, or tenderness NEUROLOGICAL: Cranial nerves II through XII intact. 5/5 strength and sensation in all extremities, Normal speech, normal gait, normal cerebellar function SKIN: Warm, Dry, normal turgor, no rashes or lesions noted. ED Treatment Course - RADIOLOGY Radiology Studies Ordered: Category Date Time Status CHEST PA & LAT [RAD] Stat Radiology 07/25/18 09:49 Ordered Medical Decision Making - Medical Decision Making 07/25/18 10:05 83 F with cough, nasal congestion, and sore throat. Suspect viral URI vs allergic rhinitis with post nasal drip. Will obtain CXR to r/o PNA. Pt without CP/SOB to suggest ACS. No evidence of volume overload on exam. - CXR - Saline nebulizer 07/25/18 10:51 CXR clear Pt reassessed after neb, now feeling much better. Pt is well appearing, with normal vitals. Clinically stable for DC at this time. I discussed the physical exam findings, ancillary test results and final diagnoses with the patient. I answered all of the patient's questions. The patient was satisfied with the care received and felt comfortable with the discharge plan and treatment plan. The patient agrees to follow up with the primary care physician within 24-72 hours. *DC/Admit/Observation/Transfer Diagnosis at time of Disposition: Cough - Discharge Dispostion Disposition: HOME Condition at time of disposition: Good - Referrals Referrals: Popeye Hendricks MD [Primary Care Provider] - - Patient Instructions Printed Discharge Instructions: DI for Cough -- Adult Additional Instructions: Your X ray today did not show pneumonia. It did, however, show that your thyroid is enlarged. Please follow up with your primary doctor to have this further evaluated. If you experience any fevers, chest pain, shortness of breath, worsening cough, or any other concerning symptoms, return to the ER immediately. Otherwise, see your primary doctor on Saturday. - Post Discharge Activity - Attestations Physician Attestion: 07/25/18 10:53 I, Dr. Bayron Barillas MD, attest that this document has been prepared under my direction and personally reviewed by me in its entirety. I further attest, that it accurately reflects all work, treatment, procedures and medical decision -making performed by me.
== END 2018-07-25 11:03 | disposition home or self-care (01) ==
LOC: FER 09:00
PROC: 3E0337Z Introduction of Electrolytic and Water Balance Substance into Peripheral Vein, Percutaneous Approach (ICD-10-PCS; principal; 2018-07-25)
DX: R05 Cough (principal); Z85.3 Personal history of malignant neoplasm of breast; I10 Essential (primary) hypertension; E78.00 Pure hypercholesterolemia, unspecified; E07.9 Disorder of thyroid, unspecified
CPT/HCPCS: 71046-TC-FY; 99282-25

== ENCOUNTER 2019-01-18 09:42 | Inpatient (IN) | payer OTHER, MEDICARE ==
--- NOTE | 2019-01-18 09:44 | PDOC ---
History of Present Illness - General Chief Complaint: Urinary Problem Stated Complaint: I THINK I HAVE A UTI Time Seen by Provider: 01/18/19 09:43 History Source: Patient Exam Limitations: No Limitations - History of Present Illness Initial Comments: 83 year old female with PMH HTN, NIDDM, thyroid disease, breast cancer ( diagnosed 2004, reported in remission s/p surgery & radiation) presented to ED for burning with urination associated with nausea/vomiting since yesterday. Pt reported she had a UTI x2 weeks ago, was treated with an unknown antibiotic, and symptoms resolved. She reported she began vomiting in the middle of the night, but has been able to keep water down, reported she has drank around 9 glasses of water this AM. She denied chest pain, shortness of breath, diarrhea, lightheadedness, abdominal pain, fever, syncope, pre-syncope, flank pain. ROS General: denied fever, chills, generalized weakness. HEENT: denied sore throat, rhinorrhea, ear pain. Cardiovascular: denied chest pain, palpitations, syncope, diaphoresis. Respiratory: denied shortness of breath, cough, sputum production, hemoptysis. Gastrointestinal: admitted to nausea, vomiting. denied abdominal pain, diarrhea , constipation, blood in stool. Genitourinary: admitted to dysuria. denied increased urinary frequency, hematuria, urinary incontinence, flank pain. Back: denied back pain. Musculoskeletal: denied joint pain, muscle pain, joint swelling. Neurological: denied headache, dizziness, numbness, tingling, weakness. Integumentary: denied rash, laceration, abrasion. Hematologic/Lymphatic: denied bruising or bleeding. PE Constitutional: Well-nourished, Well-developed, appearing stated age. HEENT: head is normocephalic, atraumatic. EOMI. PERRLA. Neck: supple. Full ROM. Cardiovascular: regular heart rhythm. no murmurs. no pericardial friction rub. Respiratory: clear to auscultation bilaterally. no crackles, rhonchi or wheezing. no stridor. Gastrointestinal: soft, nontender. normal bowel sounds. no rebound, guarding, masses. Back: negative for CVA tenderness bilaterally. Extremities: peripheral pulses intact. no lower extremity edema. Neurological: CN 2-12 grossly intact. moves all four extremities. Psych: awake, alert, oriented x3. follows commands. answers questions appropriately. Past History - Past Medical History Allergies/Adverse Reactions: Allergies Allergy/AdvReac Type Severity Reaction Status Date / Time bacitracin Allergy Intermediate Verified 01/18/19 09:43 erythromycin base Allergy Intermediate Rash Verified 01/18/19 09:43 [Erythromycin Base] Penicillins Allergy Intermediate Rash Verified 01/18/19 09:43 tetracycline [Tetracycline] Allergy Intermediate Rash Verified 01/18/19 09:43 streptomycin [Streptomycin] Allergy Verified 01/18/19 09:43 Laullpm-Uxf-Nya Reductase AdvReac Intermediate myalgias Verified 01/18/19 09:43 Inhibitor Home Medications: Ambulatory Orders Glimepiride 1 mg PO HS 03/21/17 Atenolol [Tenormin] 25 mg PO DAILY 08/29/17 - Psycho Social/Smoking Cessation Hx Smoking Status: No Smoking History: Former smoker Have you smoked in the past 12 months: No Number of Cigarettes Smoked Daily: 0 Hx Alcohol Use: No Drug/Substance Use Hx: No Substance Use Type: None ED Treatment Course - LABORATORY CBC & Chemistry Diagram: 01/18/19 10:35 01/18/19 10:48 Medical Decision Making - Medical Decision Making 83 year old female with above PMH presented to ED for Initial Vital Signs Temp Pulse Resp BP Pulse Ox 98.4 F 121 H 17 98/57 L 95 01/18/19 09:42 01/18/19 09:42 01/18/19 09:42 01/18/19 09:42 01/18/19 09:42 Afebrile. Tachycardic. No tachypnea. Hypotensive. No hypoxia on room air. -Pt will intermittently dip to 89-90-92% on room air -2L O2 nasal cannula ordered Rectal temp 100.5 Labs ordered: CBC, CMP, VBG, betahydrybutyrate, POC glucose testing, lactate, blood cultures, UA/UC Imaging ordered: CXR Medications ordered: normal saline bolus 1000 cc x2, zofran 4 mg IV once, pepcid 20 mg IV once, tylenol IV 1000 mg once EKG performed at 10:55: rate 102, regular rhythm, normal axis, normal intervals , QTC 443, nonspecific ST changes. CXR report: Name: VALERIE NEVAREZ DEPARTMENT OF RADIOLOGY Phys: Vivian Pierson RESIDENT : [id number] Age: 83 Sex: F [facility] Acct: [id number] Loc: [facility] [address] Exam Date: 01/18/19 Status: REG ER [place] [address] Unit Number: [id number] EXAM #: TYPE/EXAM: RESULT: [id number] RAD/CHEST X-RAY PORTABLE* Chest: Sepsis A single view of the chest has been submitted. Since the prior study of 07/25/2018 , there is no significant change. There are clear lungs, sharp angles, normal heart, unfolded aorta and tracheal deviation to the right from of soft tissue mass in the superior mediastinum and this most likely is related to thyroid. Skin BE confirmed with sonography. This is been commented on in the past. Incidental note is made of previous left shoulder surgery. Impression: No acute pathology. Clear lungs. Probable thyroid enlargement with tracheal deviation to the right. Reported By: Yunior Fitzgerald MD 01/18/19 1043 -Tracheal deviation seen on prior CXR 07/25/2018 01/18/19 12:36 Laboratory Last Values WBC 21.0 K/mm3 (4.0-10.8) H 01/18/19 10:35 RBC 4.28 M/mm3 (3.60-5.2) 01/18/19 10:35 Hgb 11.8 GM/dl (10.7-15.3) 01/18/19 10:35 Hct 36.7 % (32.4-45.2) 01/18/19 10:35 MCV 85.7 fl (80-96) 01/18/19 10:35 MCH 27.6 pg (25.7-33.7) 01/18/19 10:35 MCHC 32.2 g/dl (32.0-36.0) 01/18/19 10:35 RDW 13.5 % (11.6-15.6) 01/18/19 10:35 Plt Count 289 K/MM3 (134-434) 01/18/19 10:35 MPV 8.0 fl (7.5-11.1) 01/18/19 10:35 Absolute Neuts (auto) 20.3 K/mm3 01/18/19 10:35 Neutrophils % No Result Required. 01/18/19 10:35 Neutrophils % (Manual) 95.0 % (42.8-82.8) H* 01/18/19 10:35 Lymphocytes % No Result Required. 01/18/19 10:35 Lymphocytes % (Manual) 2.0 % (8-40) L 01/18/19 10:35 Monocytes % (Manual) 2 % (3.8-10.2) L 01/18/19 10:35 Eosinophils % (Manual) 1.0 % (0-4.5) 01/18/19 10:35 Platelet Estimate Adequate 01/18/19 10:35 PT with INR 12.7 SEC (10.2-13.0) 01/18/19 10:35 INR 1.14 (0.82-1.09) 01/18/19 10:35 PTT (Actin FS) 26.3 SECONDS (25.2-36.5) 01/18/19 10:35 VBG pH 7.39 (7.31-7.41) 01/18/19 10:35 POC VBG pCO2 35.4 mmHg (38-52) L 01/18/19 10:35 POC VBG pO2 < 49 mmHg (28-48) H 01/18/19 10:35 VBG HCO3 20.8 mmol/L (23-29) L 01/18/19 10:35 VBG O2 Sat (Ancelmo) 70.5 % (70-80) 01/18/19 10:35 VBG Base Excess -3.2 meq/l (-2-2) L 01/18/19 10:35 Sodium 133 mmol/L (136-145) L 01/18/19 10:48 Potassium 3.6 mmol/L (3.5-5.1) 01/18/19 10:48 Chloride 102 mmol/L (98-107) 01/18/19 10:48 Carbon Dioxide 21 mmol/L (21-32) 01/18/19 10:48 Anion Gap 11 MMOL/L (8-16) 01/18/19 10:48 BUN 22.0 mg/dl (7-18) H 01/18/19 10:48 Creatinine 1.3 mg/dl (0.55-1.3) 01/18/19 10:48 Est GFR (CKD-EPI)AfAm 43.32 01/18/19 10:48 Est GFR (CKD-EPI)NonAf 37.38 01/18/19 10:48 Random Glucose 145 mg/dl (74-106) H 01/18/19 10:48 Calcium 8.8 mg/dL (8.5-10.1) 01/18/19 10:48 Magnesium 1.4 mg/dL (1.8-2.4) L 01/18/19 10:35 Total Bilirubin 1.4 mg/dl (0.2-1) H 01/18/19 10:48 AST 50 U/L (15-37) H 01/18/19 10:48 ALT 30 U/L (13-61) 01/18/19 10:48 Alkaline Phosphatase 61 U/L (45-117) 01/18/19 10:48 Total Protein 6.2 g/dl (6.4-8.2) L 01/18/19 10:48 Albumin 3.5 g/dl (3.4-5.0) 01/18/19 10:48 Lipase 153 U/L (73-393) 01/18/19 10:48 Beta-Hydroxybutyrate 1.7 mg/dL (0.2-2.8) 01/18/19 10:48 Leukocytosis with left shift. No anemia. No acidosis. Mild hyponatremia - IVF running. Mild hypomagnesium - Magnesium 1g IV ordered No serum ketosis Lipase wnl Pending lactate, UA. 01/18/19 13:05 Lactate 6.6 -Second normal saline bolus running -Will repeat Bladder scan showed empty bladder, pt is fluid down, unable to provide urine sample. Pt to be admitted for sepsis. PCP Fader. Vital Signs Pulse Rate 91 H 01/18/19 13:23 Blood Pressure 83/55 L 01/18/19 13:23 O2 Sat by Pulse Oximetry (%) 98 01/18/19 13:23 Hypotension improving with fluid hydration. 01/18/19 16:02 Urine Test Results Urine Color Yellow 01/18/19 15: Urine Appearance Slightly 01/18/19 15:27 Urine pH 5.5 (4.5-8) 01/18/19 15:27 Urine Protein Trace (NEGATIVE) 01/18/19 15:27 Urine Glucose (UA) Negative (NEGATIVE) 01/18/19 15: Urine Ketones Negative (NEGATIVE) 01/18/19 15:27 Urine Blood Negative (NEGATIVE) 01/18/19 15:27 Urine Nitrite Negative (NEGATIVE) 01/18/19 15:27 Urine Bilirubin Negative (NEGATIVE) 01/18/19 15:27 Ur Leukocyte Esterase Trace (NEGATIVE) H 01/18/19 15:27 Negative for UTI. No source of infection. Repeat lactate 3.8 PE could possibly cause hyopxia, tachycardia, hypotension, cough. Imaging ordered: CTA chest 01/18/19 17:59 CTA report: EXAM: CHEST CTA HISTORY: Evaluate for central pulmonary emboli. Procedure: Continuous axial tomographic sections were obtained from the thoracic inlet to the level of the right renal upper pole after the use of intravenous contrast. Sagittal and coronal reformatted images are provided. COMPARISON: None. Preliminary findings/impression: 1. Mild bilateral atelectatic and/or fibrotic changes. Short-term follow-up chest radiographs are recommended for further evaluation. 2. Mild cardiomegaly 3. Atherosclerotic calcifications. 4. There is no evidence of central pulmonary emboli on this study. 5. Enlarged thyroid gland, with nonspecific parenchymal nodules. Recommend sonographic correlation. 6. Kyphoscoliosis of the thoracolumbar spine, with degenerative changes. One or more of the following dose reduction techniques were used: automated exposure control, adjustment of the mA and/or kV according to patient size, use of iterative reconstructive technique. THIS DOCUMENT HAS BEEN ELECTRONICALLY SIGNED Alejandro Rea MD 01/18/19 18:25 Vital Signs Temperature 98.3 F 01/18/19 18:20 Pulse Rate 80 01/18/19 18:20 Respiratory Rate 19 01/18/19 18:20 Blood Pressure 90/56 L 01/18/19 18:20 O2 Sat by Pulse Oximetry (%) 98 01/18/19 18:20 Pt accepted to Tele under Dr. Schwartz's care. 01/18/19 18:[address] Madison about the patient. He recommended another dose of Zosyn 4.5 g IV. Above ordered. Will continue to hydrate. Discharge - Discharge Information Problems reviewed: Yes Clinical Impression/Diagnosis: Lactic acidosis Hypotension Qualifiers: Hypotension type: hypotension due to hypovolemia Qualified Code(s): I95.89 - Other hypotension Sepsis Qualifiers: Sepsis type: sepsis due to unspecified organism Sepsis acute organ dysfunction status: without acute organ dysfunction Qualified Code(s): A41.9 - Sepsis, unspecified organism Leukocytosis Qualifiers: Leukocytosis type: bandemia Qualified Code(s): D72.825 - Bandemia Condition: Stable - Admission Yes - Follow up/Referral Referrals: Popeye Hendricks MD [Primary Care Provider] - - Patient Discharge Instructions - Post Discharge Activity
--- NOTE | 2019-01-18 09:55 | PDOC ---
Attending Attestation - Resident Resident Name: Vivian Pierson - ED Attending Attestation I have performed the following: I have examined & evaluated the patient, The case was reviewed & discussed with the resident, I agree w/resident's findings & plan, Exceptions are as noted - HPI HPI: 01/18/19 10:16 83y f hx of NIDDM, htn, presents with Complaint of burning on urination since last night. Patient states she was recently treated for UTI and completed a course of antibiotics. Patient additionally complains of a mild nonproductive cough for the last several days as well as feeling very fatigued and having a mild Gradual diffuse headache. Patient denies any fever, chills, diarrhea, BPR, melena,Back pain, abdominal pain, increased leg swelling, chest pain, shortness of breath. Exam: GENERAL: The patient is awake, alert, and fully oriented, Nontoxic - in no acute distress. HEAD: Normocephalic, atraumatic. EYES: extraocular movements intact, sclera anicteric, conjunctiva clear. ENT: Normal voice, Moist mucous membranes, Posterior pharynx without significant erythema or exudates NECK: Normal range of motion, supple LUNGS: Breath sounds equal, clear to auscultation bilaterally. No wheezes, no rhonchi, no rales.Speaking complete sentences without any respiratory distress HEART: Regular rate and rhythm, normal S1 and S2 without murmur, rub or gallop. ABDOMEN: Soft, nontender, No guarding, no rebound. No CVA tenderness EXTREMITIES: Normal range of motion, Edema, without count tenderness, negative Homans sign NEUROLOGICAL: No facial assymetry, Normal speech, All 4 extremities spontaneously and symmetrically PSYCH: Normal mood, normal affect. SKIN: hot to touch, Dry, normal turgor, Patient noted be febrile consider possible UTI versus pneumonia versus influenza Exam was otherwise unremarkable sepsis order set was obtained, Tylenol for antipyretic - Critical Care Time Total Critical Care Time: 45 Critical Care Statement: The care of this patient involved high complexity decision making to prevent further life threatening deterioration of the patient 's condition and/or to evaluate & treat vital organ system(s) failure or risk of failure. - Medical Decision Making 01/18/19 14:49 The patient's blood work was reviewed noted for leukocytosis to 21 with a left shift. Lactic acid was 6 The patient's creatinine is a bit elevated including BUN likely due to prerenal azotemia. The patient's chest x-ray does not reveal any obvious infiltrate, I suspect her source is urine in nature the patient has not been able to give us any urine even after aggressive hydration. I suspect this may be secondary to dehydration The patient's blood pressure it has come up with fluid resuscitation, Currently it is approximately 80s over 60s. We will continue to fluid resuscitate I will retreat repeat a lactic acid. Case was discussed with ICU, the case was admitted to the ICU however there are no beds. We will continue aggressive hydration/resuscitation and trend lactic acid And blood pressure. If the patient's BP is persistently low will consider central line with starting of pressors. Case was discussed with [facility] Cigi agreed with admission and will transfer to [facility] for further management once stabilized. 01/18/19 16:01 The patient's urine is not consistent with UTI. As the patient has had cough she is mildly hypoxic will obtain a CT of the chest to screen for underlying pneumonia versus PE. 01/18/19 18:37 Patient has been improving with fluid resuscitation, BP improving, patient is currently asymptomatic she is ambulatory without any lightheadedness or complaints. Unclear cause of her fever, UA is clear, CTA does not reveal acute cause Will admit to telemetry for further management
[2019-01-18] MEDS ORDERED: SODIUM CHLORIDE 1,000 ML IV STA ×2 (10:24→11:39)
[2019-01-18] MEDS ORDERED: FAMOTIDINE 20 MG/50 ML IVPB 20 MG/50 ML MG IVPB ONE (10:24)
[2019-01-18] MEDS ORDERED: ONDANSETRON 4 MG/2 ML VIAL IVPUSH ONE (10:24)
[2019-01-18 10:45] LABS: HEMATOCRIT 36.7 % (32.4-45.2); HEMOGLOBIN 11.8 GM/dl (10.7-15.3); MCH 27.6 pg (25.7-33.7); MCHC 32.2 g/dl (32.0-36.0); MEAN CELL VOLUME 85.7 fl (80-96); PLATELET COUNT 289 K/MM3 (134-434); RBC 4.28 M/mm3 (3.60-5.2); RDW 13.5 % (11.6-15.6)
[2019-01-18 11:05] LABS: CREATININE 1.3 mg/dl (0.55-1.3)
[2019-01-18 11:06] LABS: ALBUMIN 3.5 g/dl (3.4-5.0); BILIRUBIN,TOTAL 1.4 mg/dl (0.2-1); TOT PROT 6.2 g/dl (6.4-8.2)
[2019-01-18] MEDS ORDERED: ACETAMINOPHEN 1000 MG/100 ML VIAL (NON FORMULARY) IVPB ONE (11:07)
[2019-01-18 11:11] LABS: ACTIVATED PTT 26.3 SECONDS (25.2-36.5)
[2019-01-18 11:15] LABS: INR 1.14 (0.82-1.09); PROTHROMBIN TIME (PATIENT) 12.7 SEC (10.2-13.0)
[2019-01-18 11:54] LABS: PLATELET ESTIMATE ADEQUATE
[2019-01-18 12:06] LABS: VENOUS PC02 35.4 mmHg (38-52); VENOUS PH 7.39 (7.31-7.41)
[2019-01-18 12:08] LABS: VENOUS PO2 < 49 mmHg (28-48)
[2019-01-18] MEDS ORDERED: MAGNESIUM SULF 50% (8.12 MEQ/2 ML-1 GM VIAL) IVPB ONE (12:14)
[2019-01-18] MEDS ORDERED: MAGNESIUM 1GM/D5W - 1 GM/100 ML IVPB IVPB ONE (12:18)
[2019-01-18] MEDS ORDERED: SODIUM CHLORIDE 1,000 ML IV ONE (12:29)
[2019-01-18 12:31] LABS: CALCIUM 8.8 mg/dL (8.5-10.1); POTASSIUM 3.6 mmol/L (3.5-5.1)
--- NOTE | 2019-01-18 13:36 | EKG ---
Test Reason : Blood Pressure : / mmHG Vent. Rate : 102 BPM Atrial Rate : 102 BPM P-R Int : 168 ms QRS Dur : 082 ms QT Int : 340 ms P-R-T Axes : 041 015 038 degrees QTc Int : 443 ms SINUS TACHYCARDIA OTHERWISE NORMAL ECG WHEN COMPARED WITH ECG OF 03-AUG-2017 12:22, NO SIGNIFICANT CHANGE WAS FOUND Confirmed by MD Ann-Marie, Jaswinder ([id number]) on 01/18/2019 1:36:15 PM Referred By: SUKUMAR Confirmed By:Jaswinder Jacobsen MD
[2019-01-18] MEDS ORDERED: VANCOMYCIN 1,000 MG in DEXTROSE 5%-WATER - 250 ML IVPB ONE (14:00)
[2019-01-18] MEDS ORDERED: PIPERACILLIN/TAZOB 4.5 GM 4.5 GM in DEXTROSE 5%-WATER 100 ML IVPB ONE ×2 (14:01→18:47)
[2019-01-18] MEDS ORDERED: PIPERACILLIN/TAZOBACTAM 4.5 GM VIAL IVPB ONE (14:14)
[2019-01-18] MEDS ORDERED: SODIUM CHLORIDE 1,000 ML IV SCH (14:30)
--- NOTE | 2019-01-18 14:48 | HP ---
CHIEF COMPLAINT: Dysuria and urinary frequency PCP: Dr. Hendricks HISTORY OF PRESENT ILLNESS: This is an 83 female with a hx of NIDDM,HTN and hx of UTI's, who presents with complaint of burning on urination, urinary frequency,chills, LIND,intermittent dry cough,weakness ,poor appetite since last night. Denies abdominal pain, vomiting,hematuria,cp, sob, palpitations. Patient states that she was recently treated with Macrobid for UTI and completed a course of antibiotics. CxR: No acute lung pathology Influenza screen ordered Pending urine sample ER course was notable for: (1)wbc 21,Neutrophils 95 Tem 100.5 (2)Na 133, K 3.6, BUN 22, cre 1.3. T.B 1.4, AST 50 (3) Lactic acid 6.6 Recent Travel:No PAST MEDICAL HISTORY: Breast cancer- Left PAST SURGICAL HISTORY: Hysterectomy left breast lumpectomy 10 yrs ago Bilateral shoulder sx Social History: Smoking: ex- smoker, quit 40 yrs ago Alcohol:No Drugs: No Allergies bacitracin Allergy (Intermediate, Verified 01/18/19 09:43) erythromycin base [Erythromycin Base] Allergy (Intermediate, Verified 01/18/19 09:43) Rash Penicillins Allergy (Intermediate, Verified 01/18/19 09:43) Rash tetracycline [Tetracycline] Allergy (Intermediate, Verified 01/18/19 09:43) Rash streptomycin [Streptomycin] Allergy (Verified 01/18/19 09:43) Yunjtcv-Rrv-Woy Reductase Inhibitor Adverse Reaction (Intermediate, Verified 09:43) myalgias HOME MEDICATIONS: Home Medications Medication Instructions Recorded Glimepiride 1 mg PO HS 03/21/17 Atenolol [Tenormin] 25 mg PO DAILY 08/29/17 REVIEW OF SYSTEMS CONSTITUTIONAL: Absent: fever, chills, diaphoresis, generalized weakness, malaise, loss of appetite, weight change HEENT: Absent: rhinorrhea, nasal congestion, throat pain, throat swelling, difficulty swallowing, mouth swelling, ear pain, eye pain, visual changes CARDIOVASCULAR: Absent: chest pain, syncope, palpitations, irregular heart rate, lightheadedness , peripheral edema RESPIRATORY: Absent: cough, shortness of breath, dyspnea with exertion, orthopnea, wheezing, stridor, hemoptysis GASTROINTESTINAL: Absent: abdominal pain, abdominal distension, nausea, vomiting, diarrhea, constipation, melena, hematochezia GENITOURINARY:Reports dysuria, frequency, urgency, hesitancy, Absent:hematuria, flank pain, genital pain MUSCULOSKELETAL: Absent: myalgia, arthralgia, joint swelling, back pain, neck pain SKIN: Absent: rash, itching, pallor HEMATOLOGIC/IMMUNOLOGIC: Absent: easy bleeding, easy bruising, lymphadenopathy, frequent infections ENDOCRINE: Absent: unexplained weight gain, unexplained weight loss, heat intolerance, cold intolerance NEUROLOGIC: Absent: headache, focal weakness or paresthesias, dizziness, unsteady gait, seizure, mental status changes, bladder or bowel incontinence PSYCHIATRIC: Absent: anxiety, depression, suicidal or homicidal ideation, hallucinations. PHYSICAL EXAMINATION Vital Signs - 24 hr 01/18/19 01/18/19 01/18/19 09:42 11:05 11:09 Temperature 98.4 F 100.5 F H Pulse Rate 121 H Pulse Rate [ 99 H Apical] Respiratory 17 18 Rate Blood Pressure 98/57 L Blood Pressure 81/58 L [Left Arm] O2 Sat by Pulse 95 96 Oximetry (%) 01/18/19 01/18/19 01/18/19 11:43 12:01 12:24 Temperature Pulse Rate Pulse Rate [ 94 H 95 H 94 H Apical] Respiratory 18 18 18 Rate Blood Pressure Blood Pressure 75/45 L 75/45 L 76/46 L [Left Arm] O2 Sat by Pulse 95 95 97 Oximetry (%) 01/18/19 01/18/19 01/18/19 12:56 13:23 14:04 Temperature Pulse Rate Pulse Rate [ 94 H 91 H 91 H Apical] Respiratory 18 Rate Blood Pressure Blood Pressure 92/76 83/55 L 83/55 L [Left Arm] O2 Sat by Pulse 98 98 Oximetry (%) 01/18/19 14:33 Temperature 98.4 F Pulse Rate Pulse Rate [ 92 H Apical] Respiratory 18 Rate Blood Pressure Blood Pressure 82/40 L [Left Arm] O2 Sat by Pulse 97 Oximetry (%) GENERAL: Awake, alert, and fully oriented, in no acute distress. HEAD: Normal with no signs of trauma. EYES: Pupils equal, round and reactive to light, extraocular movements intact, sclera anicteric, conjunctiva clear. No lid lag. EARS, NOSE, THROAT: Ears normal, nares patent, oropharynx clear without exudates. Moist mucous membranes. NECK: Normal range of motion, supple without lymphadenopathy, JVD, or masses. LUNGS: Breath sounds equal, clear to auscultation bilaterally. No wheezes, and no crackles. No accessory muscle use. HEART: Regular rate and rhythm, normal S1 and S2 without murmur, rub or gallop. ABDOMEN: Soft, nontender, not distended, normoactive bowel sounds, no guarding, no rebound, no masses. No hepatomegaly or splenomegaly. MUSCULOSKELETAL: Normal range of motion at all joints. No bony deformities or tenderness. No CVA tenderness. UPPER EXTREMITIES: 2+ pulses, warm, well-perfused. No cyanosis. No clubbing. No peripheral edema. LOWER EXTREMITIES: 2+ pulses, warm, well-perfused. No calf tenderness. No peripheral edema. NEUROLOGICAL: Cranial nerves II-XII intact. Normal speech. Normal gait. PSYCHIATRIC: Cooperative. Good eye contact. Appropriate mood and affect. SKIN: Warm, dry, normal turgor, no rashes or lesions noted, normal capillary refill. Laboratory Results - last 24 hr 01/18/19 01/18/19 01/18/19 10:35 10:35 10:35 WBC 21.0 H RBC 4.28 Hgb 11.8 Hct 36.7 MCV 85.7 MCH 27.6 MCHC 32.2 RDW 13.5 Plt Count 289 MPV 8.0 Absolute Neuts (auto) 20.3 Neutrophils % No Result Required. Neutrophils % (Manual) 95.0 H* Lymphocytes % No Result Required. Lymphocytes % (Manual) 2.0 L Monocytes % (Manual) 2 L Eosinophils % (Manual) 1.0 Platelet Estimate Adequate PT with INR 12.7 INR 1.14 PTT (Actin FS) 26.3 VBG pH POC VBG pCO2 POC VBG pO2 VBG HCO3 VBG O2 Sat (Ancelmo) VBG Base Excess Sodium Potassium Chloride Carbon Dioxide Anion Gap BUN Creatinine Est GFR (CKD-EPI)AfAm Est GFR (CKD-EPI)NonAf Random Glucose Lactic Acid Calcium Magnesium 1.4 L Total Bilirubin AST ALT Alkaline Phosphatase Total Protein Albumin Lipase Cancelled Beta-Hydroxybutyrate 01/18/19 01/18/19 01/18/19 10:35 10:35 10:48 WBC RBC Hgb Hct MCV MCH MCHC RDW Plt Count MPV Absolute Neuts (auto) Neutrophils % Neutrophils % (Manual) Lymphocytes % Lymphocytes % (Manual) Monocytes % (Manual) Eosinophils % (Manual) Platelet Estimate PT with INR INR PTT (Actin FS) VBG pH 7.39 POC VBG pCO2 35.4 L POC VBG pO2 < 49 H VBG HCO3 20.8 L VBG O2 Sat (Ancelmo) 70.5 VBG Base Excess -3.2 L Sodium 133 L Potassium 3.6 Chloride 102 Carbon Dioxide 21 Anion Gap 11 BUN 22.0 H Creatinine 1.3 Est GFR (CKD-EPI)AfAm 43.32 Est GFR (CKD-EPI)NonAf 37.38 Random Glucose 145 H Lactic Acid 6.6 H* Calcium 8.8 Magnesium Total Bilirubin 1.4 H AST 50 H ALT 30 Alkaline Phosphatase 61 Total Protein 6.2 L Albumin 3.5 Lipase 153 Beta-Hydroxybutyrate 1.7 ASSESSMENT/PLAN: This is an 83 female with a hx of NIDDM,HTN,admitted with sepsis. * Sepsis r/o UTI vs Influenza - wbc 21, Temp 100.5 - lactic acid 6.6, low BP - received 3L NS in ER - will monitor BP and f/u on repeat lactic acid level - Influenza screen ordered - BC pending - urine sample pending - received Vanco and Zosyn in ER - will cont on Zosyn - ID Dr. Madison consulted - pt clinically stable * Abnormal AST and T. Bi- likely reactive from sepsis - asymptomatic - will monitor labs * NIDDM - will hold of home diabetic med Glimepride - FS Ac& HS - Insulin sliding scale * HTN- low BP - will hold off home meds Losartan and Cozaar - IVF - will monitor BP closely *VTE: Heparin SQ *F/E/N: Diabetic diet Replace electrolyte as needed Mg 1.4- replaced in ER Pending ICU admission Visit type - Emergency Visit Emergency Visit: Yes Care time: The patient presented to the Emergency Department on the above date and was hospitalized for further evaluation of their emergent condition. - New Patient This patient is new to me today: Yes Date on this admission: 01/18/19 - Critical Care Critical Care patient: Yes Total Critical Care Time (in minutes): 45 Critical Care Statement: The care of this patient involved high complexity decision making to prevent further life threatening deterioration of the patient 's condition and/or to evaluate & treat vital organ system(s) failure or risk of failure.
[2019-01-18] MEDS ORDERED: VANCOMYCIN 1,000 MG VIAL (RESTRICTED TO ID ONLY) ONE (14:50)
[2019-01-18] MEDS: SODIUM CHLORIDE 1,000 ML IV SCH (15:58)
[2019-01-18 16:13] LABS: EPITHELIAL CELLS FEW /hpf
[2019-01-18] MEDS: INSULIN SLIDING SCALE (NOVOLOG) 1 VIAL SQ SCH ×2 (17:17→22:10)
[2019-01-18 21:02] VITALS: BMI 29.0
[2019-01-18] MEDS ORDERED: PIPERACILLIN/TAZOBACTAM 3.375 GM VIAL IVPB ONE (21:20)
[2019-01-18] MEDS ORDERED: DEXTROSE 5%-WATER - 50 ML IVPB ONE (21:21)
[2019-01-18] MEDS: HEPARIN NA (PORCINE) 5,000 UNITS/ML 1ML VIAL SQ SCH (21:55)
[2019-01-18] MEDS: PIPERACILLIN/TAZOB 3.375 GM 3.375 GM in DEXTROSE 5%-WATER - 50 ML IVPB SCH (21:57)
[2019-01-18] MEDS ORDERED: PIPERACILLIN/TAZOB 3.375 GM 3.375 GM in DEXTROSE 5%-WATER - 50 ML IVPB SCH (22:00)
[2019-01-18] MEDS ORDERED: ACETAMINOPHEN 325 MG TABLET (FP) PO PRN (22:13)
[2019-01-18] MEDS ORDERED: ACETAMINOPHEN 325 MG TABLET (FP) PO ONE (22:13)
[2019-01-19] MEDS ORDERED: PIPERACILLIN/TAZOBACTAM 3.375 GM VIAL IVPB ONE ×3 (01:43→17:18)
[2019-01-19] MEDS ORDERED: DEXTROSE 5%-WATER - 50 ML IVPB ONE ×3 (01:44→17:18)
--- NOTE | 2019-01-19 02:44 | HOSP ---
Subjective - Review of Symptoms Events since last encounter: Hospitalist Encounter Patient transferred from [place] for cardiac monitoring secondary to Hypotension Arrived to bedside, patient is awake, alert and oriented x2. Patient reports having fever, chills, frequency, dysuria and a headache Assessment: This is an 83 y/o woman with a PMHx of NIDDM, HTN, frequent UTIs. Admitted to Telemetry for Sepsis. Plan: * Sepsis etiology unknown r/o UTI vs influenza - qSOFA 1 - wbc 21, Temp 100.5 - lactic acid 6.6~3.8~2.1 - hypotension likely due to Sepsis vs BB - received 3L NS in ER - will monitor BP and f/u on repeat lactic acid level - Influenza screen- neg A+B - BC pending - urine sample pending - received Vanco and Zosyn in ER - will cont on Zosyn - ID Dr. Madison consulted - monitor CBC, BMP - maintain MAP >65 * Abnormal AST and T. Bi- likely reactive from sepsis - asymptomatic - will monitor labs * NIDDM - will hold of home diabetic med Glimepride - FS Ac& HS - Insulin sliding scale * HTN- low BP - will hold off home meds Losartan and Cozaar - IVF - will monitor BP closely * Headache - Tylenol prn *VTE: Heparin SQ *F/E/N: Diabetic diet Replace electrolyte as needed Mg 1.4- replaced in ER HEENT: Yes: Head Aches Genitourinary: Yes: Dysuria, Frequency Physical Examination Vital Signs: Vital Signs Temperature 97.8 F 01/19/19 02:00 Pulse Rate 84 01/19/19 02:00 Respiratory Rate 18 01/19/19 02:00 Blood Pressure 89/48 L 01/19/19 02:00 O2 Sat by Pulse Oximetry (%) 97 01/18/19 20:17 Constitutional: Yes: No Distress, Calm Eyes: Yes: WNL, Conjunctiva Clear, EOM Intact, PERRL HENT: Yes: WNL, Atraumatic, Normocephalic Neck: Yes: WNL, Supple, Trachea Midline Cardiovascular: Yes: WNL, Regular Rate and Rhythm, S1, S2 Respiratory: Yes: WNL, Regular, CTA Bilaterally Gastrointestinal: Yes: WNL, Normal Bowel Sounds, Soft Breast(s): Yes: WNL Musculoskeletal: Yes: WNL Extremities: Yes: WNL Edema: Yes Edema: LLE: 2+, RLE: 2+ Peripheral Pulses WNL: Yes Neurological: Yes: Alert, Oriented ...Motor Strength: WNL Psychiatric: Yes: WNL, Alert, Oriented Labs: CBC, BMP 01/18/19 10:35 01/18/19 10:48
[2019-01-19] MEDS: PIPERACILLIN/TAZOB 3.375 GM 3.375 GM in DEXTROSE 5%-WATER - 50 ML IVPB SCH ×3 (03:19→17:21)
[2019-01-19] MEDS: HEPARIN NA (PORCINE) 5,000 UNITS/ML 1ML VIAL SQ SCH ×3 (05:43→21:50)
[2019-01-19] MEDS: INSULIN SLIDING SCALE (NOVOLOG) 1 VIAL SQ SCH ×4 (06:09→21:56)
[2019-01-19 07:54] LABS: ALBUMIN 2.6 g/dl (3.4-5.0); BILIRUBIN,TOTAL 1.1 mg/dL (0.2-1); CREATININE 1.2 mg/dL (0.55-1.3); POTASSIUM 3.7 mmol/L (3.5-5.1); TOT PROT 5.3 g/dl (6.4-8.2)
[2019-01-19 08:46] LABS: BASO % 0.3 % (0-2.0); EOS % 10.2 % (0-4.5); HEMATOCRIT 33.4 % (32.4-45.2); HEMOGLOBIN 10.7 GM/dL (10.7-15.3); LYMPH % 5.9 % (8-40); MCH 27.2 pg (25.7-33.7); MCHC 32.2 g/dl (32.0-36.0); MEAN CELL VOLUME 84.7 fl (80-96); MEAN PLT VOLUME 8.6 fl (7.5-11.1); MONO % 5.4 % (3.8-10.2); NEUT % 78.2 % (42.8-82.8); PLATELET COUNT 231 K/MM3 (134-434); RBC 3.94 M/mm3 (3.60-5.2); RDW 14.2 % (11.6-15.6); WHITE BLOOD COUNT 14.9 K/mm3 (4.0-10.0)
--- NOTE | 2019-01-19 10:53 | PN ---
Progress Note (short form) - Note Progress Note: Hospitalist Medicine With dry cough. Otherwise states she feels well. "I need to be home to cook for thanksgiving." No other complaint. Has chronic lymphedema, does not use a pump for it. Ambulates on own at baseline. Lives with daughter Vitals 01/19/19 09:00 Temperature 98.1 F Pulse Rate 82 Respiratory 18 Rate Blood Pressure 93/49 L Physical Exam general: well-appearing. sitting up in bed, in NAD HEENT: NCAT neck: supple cardio: S1, S2 RRR. no r/m/g pulm : CTA b/l. 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 01/18/19 10:45 Blood - Peripheral Venous Blood Culture - Preliminary NO GROWTH OBTAINED AFTER 24 HOURS, INCUBATION TO CONTINUE FOR 4 DAYS. Imaging chest CTA: 01/18: negative for PE. mild b/l atelectasis, atherosclerotic changes. enlarged thyroid gland, bibasilar consolidation R>L. Assessment/plan 83 y/o woman with a PMHx of NIDDM, HTN, frequent UTIs. Admitted for sepsis 2/2 unknown etiology. #Sepsis 2/2 unknown etiology -may be 2/2 UTI, though UA WNL, recently tx for UTI - may have not fully improved -improved WBC count, no longer febrile. however still hypotensive -lactic now WNL -incentive spirometer for atelectasis -ucx, blood cx (-) thus far -c/w zosyn (Day 2) -ID: Dr. Madison #Enlarged thyroid gland -f/u thyroid sono- ordered -TFT's: low TSH (0.09) #Transaminitis - resolved #NIDDM -will hold of home diabetic med Glimepride -ISS, BGM ACHS #HTN- now w/ hypotension -hold off home meds Losartan and Cozaar -c/w IVF -c/t monitor #F/E/N has good EF from 2018 (65%) IV NS 125 cc/hr c/t monitor lytes diabetic diet #PPX DVT: hep 5k sq tid #Dispo admitted to telemetry cont'd monitoring <Alexia Beckett - Last Filed: 01/19/19 19:01> - Note Progress Note: Seen and examined; please see resident note for further information. Agree with above as documented aside from as supplemented by myself. Personally verified all zarate historical details, PE findings, as well as all labs, imaging, and diagnostics. Discussed at length with resident and indicated consultants. No further subjective findings; confused but not agitated. 10 sys ROS done and negative aside from HPI NAD, AAO, resting in bed NC AT EOMI PERRLA HR wnl, s1/2+ Lungs CTAB, w/ sym exp NT ND +BS CN2-12 wnl, no fnd Normal mood, appropriate behavior, below average insight 2/2 clinical condition Trachea midline, no JVD Micro, labs, imaging reviewed. A/P: -Sepsis 2/2 UTI, improved (Continue broad-spectrum abx, followup with Dr. Madison) -Toxic medabolic encephalopathy -Mild hyperbilirubinemia (repeat CMP in AM, GGT and RUQ if indicated) -Enlarged thyroid (check TFTs; consider endocrine consult. Obtain Thyroid US if possible inpatient) -Underlying chronic lung disease (Consult pulmonary, incentive spirometry, PRN BDs, no acute indication for systemic steroids but will defer to pulm. Check BNP and echo to r/o R-heart involvement if chronic pulm process evident. -Overweight (BMI >25) -NIDDM (DC RACHEL on DC 2/2 Beer's list, monitor fsg). -Hx HTN (hold losartan and amlodipine; resume when clinically indicated and no risk of worsening sepsis) -Likely underlying MCI (consider formal testing when acute issues resolve) -Deconditioning (Consulting PT; consider placement) -Eosinophilia (Trend CBC, check O/P and strongyloides. If worsens consider heme consult) -Hyppalbuminemia -Multiple drug allergies Full Code (consider family meeting) <Wayne Muller - Last Filed: 01/20/19 01:58>
[2019-01-19] MEDS ORDERED: SODIUM CHLORIDE 250 ML IV STA (10:54)
--- NOTE | 2019-01-19 15:05 | CON.ID ---
Consult Consult Specialty:: infectious diseases Referred by:: Cigi - Alcohol/Substance Use Hx Alcohol Use: No - Smoking History Smoking history: Former smoker Have you smoked in the past 12 months: No Aproximately how many cigarettes per day: 0 If you are a former smoker, when did you quit?: 2014 Home Medications - Allergies Allergies/Adverse Reactions: Allergies Allergy/AdvReac Type Severity Reaction Status Date / Time bacitracin Allergy Intermediate Verified 01/18/19 09:43 erythromycin base Allergy Intermediate Rash Verified 01/18/19 09:43 [Erythromycin Base] Penicillins Allergy Intermediate Rash Verified 01/18/19 09:43 tetracycline [Tetracycline] Allergy Intermediate Rash Verified 01/18/19 09:43 streptomycin [Streptomycin] Allergy Verified 01/18/19 09:43 Nzlfpxe-Usc-Rje Reductase AdvReac Intermediate myalgias Verified 01/18/19 09:43 Inhibitor - Home Medications Home Medications: Ambulatory Orders Glimepiride 1 mg PO HS 03/21/17 Atenolol [Tenormin] 25 mg PO DAILY 08/29/17 Physical Exam Vital Signs: Vital Signs Temperature 98.1 F 01/19/19 14:00 Pulse Rate 76 01/19/19 14:00 Respiratory Rate 18 01/19/19 14:00 Blood Pressure 97/45 L 01/19/19 14:00 O2 Sat by Pulse Oximetry (%) 97 01/19/19 09:10 Labs: CBC, BMP 01/19/19 06:38 01/19/19 06:38
[2019-01-19] MEDS: SODIUM CHLORIDE 1,000 ML IV SCH (16:29)
[2019-01-19] MEDS ORDERED: SODIUM CHLORIDE 1,000 ML IV SCH (17:49)
[2019-01-20] MEDS ORDERED: ALBUTEROL SO4 0.083% IH SOL 2.5 MG/3 ML VIAL.NEB. NEB PRN (01:51)
[2019-01-20] MEDS ORDERED: PIPERACILLIN/TAZOBACTAM 3.375 GM VIAL IVPB ONE ×3 (03:15→18:14)
[2019-01-20] MEDS ORDERED: DEXTROSE 5%-WATER - 50 ML IVPB ONE ×3 (03:16→18:14)
[2019-01-20] MEDS: PIPERACILLIN/TAZOB 3.375 GM 3.375 GM in DEXTROSE 5%-WATER - 50 ML IVPB SCH ×3 (03:27→18:45)
[2019-01-20] MEDS: HEPARIN NA (PORCINE) 5,000 UNITS/ML 1ML VIAL SQ SCH ×3 (05:24→22:16)
[2019-01-20] MEDS: INSULIN SLIDING SCALE (NOVOLOG) 1 VIAL SQ SCH ×4 (06:44→22:16)
[2019-01-20] MEDS ORDERED: SODIUM CHLORIDE 1,000 ML IV SCH (07:06)
[2019-01-20 07:16] LABS: BASO % 0.5 % (0-2.0); EOS % 21.5 % (0-4.5); HEMATOCRIT 28.9 % (32.4-45.2); HEMOGLOBIN 9.8 GM/dL (10.7-15.3); LYMPH % 18.5 % (8-40); MCHC 33.8 g/dl (32.0-36.0); MEAN CELL VOLUME 82.9 fl (80-96); MEAN PLT VOLUME 8.2 fl (7.5-11.1); MONO % 7.5 % (3.8-10.2); PLATELET COUNT 225 K/MM3 (134-434); RBC 3.49 M/mm3 (3.60-5.2); RDW 14.3 % (11.6-15.6)
[2019-01-20 08:06] LABS: BLOOD UREA NITROGEN 16.2 mg/dL (7-18); CALCIUM 8.2 mg/dL (8.5-10.1); CREATININE 0.9 mg/dL (0.55-1.3); MAGNESIUM 1.9 mg/dL (1.8-2.4); PHOSPHOROUS 2.8 mg/dL (2.5-4.9); POTASSIUM 3.6 mmol/L (3.5-5.1); PREALBUMIN 12.4 mg/dl (20-40)
[2019-01-20 10:03] LABS: PLATELET ESTIMATE NORMAL
--- NOTE | 2019-01-20 10:59 | ECHO ---
Version: 1 Name: VALERIE NEVAREZ Exam: Adult Echocardiogram Study Date: 01/20/2019, 8:38 AM Age: 83 Years MMode/2D Measurements & Calculations IVSd: 0.92 cm LVIDs: 1.98 cm LVIDd: 2.8 cm LVPWd: 0.98 cm ACS: 2.01 cm Ao root diam: 2.8 cm LVOT diam: 1.82 cm LA dimension: 3.1 cm Doppler Measurements & Calculations MV E max anthony: 101.0 cm/sec Med E/e': 8.4 MV A max anthony: 114.1 cm/sec Med Peak E' Anthony: 12.0 cm/sec MV E/A: 0.89 Lat E/e': 8.2 Lat Peak E' Anthony: 12.3 cm/sec MR max P.6 mmHg Ao max P.7 mmHg LV V1 mean: 69.6 cm/sec Ao V2 max: 171.0 cm/sec LV V1 mean P.19 mmHg TR max anthony: 321.6 cm/sec TR max P.4 mmHg Left Ventricle The left ventricular cavity is small. Left ventricular systolic function is normal. Ejection Fractio n = 65%. The transmitral spectral Doppler flow pattern is suggestive of impaired LV relaxation. Right Ventricle The right ventricle is normal in size and function. Atria Normal left and right atrial size and function. Mitral Valve There is moderate mitral annular calcification. There is mild mitral regurgitation. The mitral regur gitant jet is eccentrically directed. Tricuspid Valve Tricuspid leaflets are thickened. There is moderate to severe tricuspid regurgitation. There is mild pulmonary hypertension. Right ventricular systolic pressure is elevated at 45 mmhg. Assuming the RA pressure is 5 mmHg. Aortic Valve There is moderate aortic sclerosis.;. Mild valvular aortic stenosis. The calculated aortic valve are a using the continuity equation is 1.54 cm2. Peak gradient 12 mmHg and mean gradient 7 mmHg. Pulmonic Valve The pulmonic valve is not well visualized. Great Vessels The aortic root is normal size. Pericardium/Pleura There is no pericardial effusion. Summary Statements The left ventricular cavity is small. Left ventricular systolic function is normal. Ejection Fractio n = 65%. The right ventricle is normal in size and function. Normal left and right atrial size and function. There is moderate aortic sclerosis.; Mild valvular aortic stenosis. The calculated aortic valve area using the continuity equation is 1.54 cm2. Peak gradient 12 mmHg and mean gradient 7 mmHg. There is moderate mitral annular calcification. There is mild mitral regurgitation. The mitral regur gitant jet is eccentrically directed. Tricuspid leaflets are thickened. There is moderate to severe tricuspid regurgitation. There is mild pulmonary hypertension. Right ventricular systolic pressure is elevated at 45 mmhg. Assuming the RA pressure is 5 mmHg MD Corry Barfield01/20/2019, 10:58 AM Ordering Physician: VIPUL NGUYEN Performed By: Ree Escalante
--- NOTE | 2019-01-20 11:53 | PN ---
Progress Note (short form) - Note Progress Note: PULMONARY CONSULTATION DICTATED 01/20/19 IMP FEVER ? ETIOLOGY ? ,?VIRAL,INFLUENZA SCREEN NEGATIVE PULMONARY HTN HTN EOSINOPHILIA NIDDM H/O BREAST CA S/P LEFT LUMPECTOMY,RT ELEVATED LACTATE LEVEL IMPROVED HYPOTENSION IMPROVED ANEMIA PLAN ABX PER ID O2 NEEDED TREND EOSINOPHIL CT CHECK CULTURES PFTS OUTPATIENT MONITOR LYTES,CBC DR RAO Problem List - Problems (1) Anemia Code(s): D64.9 - ANEMIA, UNSPECIFIED (2) Hypotension Code(s): I95.9 - HYPOTENSION, UNSPECIFIED Qualifiers: Hypotension type: hypotension due to hypovolemia Qualified Code(s): I95.89 - Other hypotension; E86.1 - Hypovolemia (3) Lactic acidosis Code(s): E87.2 - ACIDOSIS (4) Leukocytosis Code(s): D72.829 - ELEVATED WHITE BLOOD CELL COUNT, UNSPECIFIED Qualifiers: Leukocytosis type: bandemia Qualified Code(s): D72.825 - Bandemia (5) Cough Code(s): R05 - COUGH (6) Eosinophilia Code(s): D72.1 - EOSINOPHILIA
[2019-01-20] MEDS: SODIUM CHLORIDE 1,000 ML IV SCH (12:04)
--- NOTE | 2019-01-20 12:42 | PN ---
Progress Note, Physician History of Present Illness: stable no new issues - Current Medication List Current Medications: Active Medications Albuterol Sulfate (Ventolin 0.083% Nebulizer Soln -) 1 amp NEB Q4H PRN PRN Reason: SHORT OF BREATH/WHEEZING Heparin Sodium (Porcine) (Heparin -) 5,000 unit SQ TID BECKY Last Admin: 01/20/19 05:24 Dose: 5,000 unit Piperacillin Sod/Tazobactam (Sod 3.375 gm/ Dextrose) 50 mls @ 100 mls/hr IVPB Q8H-IV BECKY; Protocol Last Admin: 01/20/19 12:05 Dose: 100 mls/hr Sodium Chloride (Normal Saline -) 1,000 mls @ 75 mls/hr IV ASDIR BECKY Last Admin: 01/20/19 12:04 Dose: 75 mls/hr Insulin Aspart (Novolog Vial Sliding Scale -) 1 vial SQ ACHS BECKY; Protocol Last Admin: 01/20/19 06:44 Dose: Not Given - Objective Vital Signs: Vital Signs Temperature 98.2 F 01/20/19 07:27 Pulse Rate 90 01/20/19 07:27 Respiratory Rate 18 01/20/19 07:27 Blood Pressure 140/79 01/20/19 07:27 O2 Sat by Pulse Oximetry (%) 98 01/20/19 10:00 Constitutional: Yes: No Distress, Calm Cardiovascular: Yes: S1, S2 Respiratory: Yes: Regular, CTA Bilaterally Gastrointestinal: Yes: Normal Bowel Sounds, Soft Musculoskeletal: Yes: WNL Extremities: Yes: WNL Neurological: Yes: Alert, Oriented Psychiatric: Yes: Alert, Oriented Labs: CBC, BMP 01/20/19 05:45 01/20/19 05:45 INR, PTT INR 1.14 (0.82-1.09) 01/18/19 10:35 Assessment/Plan This is an 83 female with a hx of NIDDM,HTN,admitted with sepsis. * Sepsis UTI abn liver enzymes * NIDDM * hypotension plan continue current mgmt will d/w the tem
--- NOTE | 2019-01-20 12:44 | CONS ---
DATE OF CONSULTATION: 01/20/2019 REFERRING PHYSICIAN: Wayne Muller MD HISTORY: Patient is an 83-year-old white female with a past medical history of hypertension, noninsulin-dependent diabetes mellitus, thyroid disease, breast cancer diagnosed 2005 status post left lumpectomy as well as RT currently in remission. Admitted to [facility] with the complaint of nausea, vomiting , burning on urination. Patient states that 2 weeks prior to admission she had a UTI. At that time, she was treated on unknown antibiotics AND symptoms resolved. Apparently, on the day of admission she started developing vomiting in the middle of the night and unable to keep water down. She apparently drank about 9 glasses of water in the morning and had persistent vomiting. She also complained of some short of breath as well as cough, productive. Denied any chest pains or palpitations. Denied any diarrhea. Of note, she states she had a fever, but she did not take her temperature. She presented to the emergency room with above. In the ER, she was noted to be hypotensive and tachycardic with an elevated lactate level. She was started on IV fluid with improvement in hypotension as well as her lactate level. She was also started on broad-spectrum antibiotics. She underwent a CTA of the chest, which reveals no evidence of pulmonary embolus with marked thyromegaly and chronic lung disease with bibasilar consolidation and atelectasis. No acute infiltrates were appreciated. Patient has a history of tobacco use approximately 2 packs per day, quit years ago. She denies any history of occupational exposure to chemicals or fumes. Of note, she also underwent echocardiogram on current hospitalization, which revealed normal LV and RV function. Pulmonary artery pressure mild to moderate with severe tricuspid regurgitation with mild pulmonary hypertension of about 45 mmHg. Patient prior to this episode denies any shortness of breath or dyspnea on exertion. There is no history of DVT or PE in the past. PAST MEDICAL HISTORY: Again includes [id number] diabetes mellitus, hypertension, history of breast cancer status post left lumpectomy as well followed by RT. CURRENT MEDICATIONS: Include piperacillin, heparin, albuterol, normal saline, NovoLog. REVIEW OF SYSTEMS: Currently no shortness of breath, no chest pain, no cough, no hemoptysis, no abdominal pain, no nausea, no vomiting, no lower extremity edema. PHYSICAL EXAMINATION: General: Patient is an elderly female awake, alert in no acute distress. Vital Signs: She is afebrile. O2 saturation 98% on room air, respiratory rate 18, blood pressure 140/79. HEENT: Normocephalic, atraumatic. Neck: Supple. Heart: Regular with S1, S2. Chest: Clear. Abdomen: Soft. Bowel sounds are positive. Extremities: No cyanosis. There is trace edema bilaterally. LABORATORIES: WBC 7, hemoglobin 9.8, hematocrit 28.9 with a platelet count of 225,000. Of note, differential is 52 polys, 18 lymphocytes, and 21 eosinophils. Of note, eosinophils on admission were 1. Manual eosinophils today are 26 and on January 19 were 10.2. Venous blood gas 7.39, PCO2 of 35, PO2 of 49, bicarbonate 20, saturation 70, INR 1.14. Chemistries; hemoglobin A1C 6.7, BUN 16, creatinine 0.9, lactate level initially was 6.6, most recent yesterday was 2.1. IMPRESSION: 1. Fever, nausea, vomiting, cough, etiology to be determined. Possible viral infection. Influenza screen negative. No evidence of pneumonia on chest CT. 2. Pulmonary hypertension, unknown etiology. 3. Hypertension. 4. Eosinophilia likely secondary medications. 5. Noninsulin-dependent diabetes mellitus. 6. History of breast cancer status post left lumpectomy, radiation therapy. 7. Elevated lactate level, improved. 8. Hypotension, improved. PLAN: Antibiotics as per ID. Supplemental O2 as needed. Trend eosinophil count. Check cultures. PFT as an outpatient. LAUREL RAO M.D. [id number] MTDD
--- NOTE | 2019-01-20 18:50 | PN ---
Progress Note (short form) - Note Progress Note: Hospitalist Medicine c/o loose BM that started yesterday evening. 3 episodes, loose watery. No other complaint. Vitals 01/20/19 16:54 Temperature 98.4 F Pulse Rate 90 Respiratory 16 Rate Blood Pressure 138/92 Physical Exam general: well-appearing. sitting up in bed, in NAD HEENT: NCAT neck: supple cardio: S1, S2 RRR. no r/m/g pulm : CTA b/l. no accessory m usage abdomen: soft, diffusely TTP. 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 Laboratory Tests 01/20/19 01/20/19 01/20/19 05:45 05:45 05:45 WBC 7.0 Hgb 9.8 L Hct 28.9 L Plt Count 225 Eosinophils % 21.5 H* D Sodium 144 Potassium 3.6 Chloride 115 H Anion Gap 5 L BUN 16.2 Creatinine 0.9 Hemoglobin A1c % Calcium 8.2 L TSH Free T3 Pending Total T3 Pending Thyroid Peroxidase Ab Strongyloides IgG Ab 01/20/19 01/20/19 01/20/19 05:45 05:45 15:00 WBC Hgb Hct Plt Count Eosinophils % Sodium Potassium Chloride Anion Gap BUN Creatinine Hemoglobin A1c % 6.7 H Calcium TSH 0.28 L Free T3 Total T3 Thyroid Peroxidase Ab Strongyloides IgG Ab Pending 01/20/19 15:00 WBC Hgb Hct Plt Count Eosinophils % Sodium Potassium Chloride Anion Gap BUN Creatinine Hemoglobin A1c % Calcium TSH Free T3 Total T3 Thyroid Peroxidase Ab Pending Strongyloides IgG Ab Microbiology 01/18/19 15:27 Urine - Urine Clean Catch Urine Culture - Final 01/18/19 10:45 Blood - Peripheral Venous Blood Culture - Preliminary NO GROWTH OBTAINED AFTER 48 HOURS, INCUBATION TO CONTINUE FOR 3 DAYS. 01/18/19 10:45 Blood - Peripheral Venous Blood Culture - Preliminary NO GROWTH OBTAINED AFTER 48 HOURS, INCUBATION TO CONTINUE FOR 3 DAYS. Imaging chest CTA: 01/18: negative for PE. mild b/l atelectasis, atherosclerotic changes. enlarged thyroid gland, bibasilar consolidation R>L. ECHO: EF 65%, mod , mod-severe TR, eccentric jet Assessment/plan 83 y/o woman with a PMHx of NIDDM, HTN, frequent UTIs. Admitted for sepsis 2/2 unknown etiology. #Sepsis 2/2 unknown etiology -may be 2/2 UTI, though UA WNL, recently tx for UTI - may have not fully improved -improved WBC count, no longer febrile. -with abdominal pain. may have hx of ischemic gut, cont to hydrate -will c/w IV zosyn (Day2) -lactic now WNL -incentive spirometer for atelectasis -ucx, blood cx (-) thus far -will monitor off abx -ID: Dr. Madison #Enlarged thyroid gland -f/u thyroid sono- ordered -TFT's: low TSH (0.09), TSH 0.28 #Transaminitis - resolved #NIDDM -will hold of home diabetic med Glimepride -ISS, BGM ACHS -a1c 6.7% #HTN-controlled -hold off home meds Losartan and Cozaar -c/w IVF for now -c/t monitor #F/E/N IV NS 75 cc/hr c/t monitor lytes diabetic diet #PPX DVT: hep 5k sq tid #Dispo anticipate d/c in 24 hrs if change from IV abx to PO <Alexia Beckett - Last Filed: 01/20/19 18:57> - Note Progress Note: Seen and examined; please see resident note for further information. Agree with above as documented aside from as supplemented by myself. Personally verified all zarate historical details, PE findings, as well as all labs, imaging, and diagnostics. Discussed at length with resident and indicated consultants. No further subjective findings; Discussed stopping abx wirh Dr. Madison and the resident team. 10 sys ROS done and negative aside from HPI NAD, AAO, resting in bed NC AT EOMI PERRLA HR wnl, s1/2+ Lungs CTAB, w/ sym exp NT ND +BS CN2-12 wnl, no fnd Normal mood, appropriate behavior, below average insight 2/2 clinical condition Trachea midline, no JVD Micro, labs, imaging reviewed. A/P: Pending PT evaluation; will require placement. -Sepsis 2/2 UTI, improved (Stopping abx per ID) -Toxic medabolic encephalopathy -Mild hyperbilirubinemia (repeat CMP in AM, GGT and RUQ if indicated) -Enlarged thyroid (check TFTs; consider endocrine consult. Obtain Thyroid US if possible inpatient) -Underlying chronic lung disease -Overweight (BMI >25) -NIDDM (DC RACHEL on DC 2/2 Beer's list, monitor fsg). -Hx HTN (hold losartan and amlodipine; resume when clinically indicated and no risk of worsening sepsis) -Likely underlying MCI (consider formal testing when acute issues resolve) -Deconditioning (Consulting PT; consider placement) -Eosinophilia -Hyppalbuminemia -Multiple drug allergies Full Code (consider family meeting) <Wayne Muller - Last Filed: 01/21/19 01:37>
--- NOTE | 2019-01-20 23:11 | CONSULT ---
Consult Consult Specialty:: endocrine Referred by:: dr.Yurkiw Black Reason for Consultation:: DM T2,. hypothyroidism - History of Present Illness Chief Complaint: frequent urination,and burning History of Present Illness: 83 female with a hx of Type 2 Dm,HTN and hx of UTI's, who presented with complaint of burning on urination, urinary frequency,chills, LIND,intermittent dry cough,weakness ,poor appetite since last night. Denies abdominal pain, vomiting,hematuria,cp, sob, palpitations. Patient states that she has long standing dm and aware of sugar control,her blood sugars usually under 150mg /dl in am,she has felt uneasy and tired easily - Alcohol/Substance Use Hx Alcohol Use: No - Smoking History Smoking history: Former smoker Have you smoked in the past 12 months: No Aproximately how many cigarettes per day: 0 If you are a former smoker, when did you quit?: 2014 Home Medications - Allergies Allergies/Adverse Reactions: Allergies Allergy/AdvReac Type Severity Reaction Status Date / Time bacitracin Allergy Intermediate Verified 01/18/19 09:43 erythromycin base Allergy Intermediate Rash Verified 01/18/19 09:43 [Erythromycin Base] Penicillins Allergy Intermediate Rash Verified 01/18/19 09:43 tetracycline [Tetracycline] Allergy Intermediate Rash Verified 01/18/19 09:43 streptomycin [Streptomycin] Allergy Verified 01/18/19 09:43 Kvywnce-Kca-Fim Reductase AdvReac Intermediate myalgias Verified 01/18/19 09:43 Inhibitor - Home Medications Home Medications: Ambulatory Orders Glimepiride 1 mg PO HS 03/21/17 Atenolol [Tenormin] 25 mg PO DAILY 08/29/17 Review of Systems - Review of Systems Constitutional: reports: Loss of Appetite, Weakness Eyes: reports: No Symptoms HENT: reports: No Symptoms Neck: reports: No Symptoms Cardiovascular: reports: Shortness of Breath Respiratory: reports: Exercise Intolerance Gastrointestinal: reports: Bloating Genitourinary: reports: Frequency Breasts: reports: No Symptoms Reported Musculoskeletal: reports: Muscle Pain, Muscle Cramps Neurological: reports: Weakness Endocrine: reports: Increased Thirst Physical Exam Vital Signs: Vital Signs Temperature 97.4 F L 01/20/19 17:00 Pulse Rate 83 01/20/19 17:00 Respiratory Rate 20 01/20/19 17:00 Blood Pressure 137/86 01/20/19 17:00 O2 Sat by Pulse Oximetry (%) 98 01/20/19 10:00 Constitutional: Yes: Calm Eyes: Yes: EOM Intact HENT: Yes: Normocephalic Neck: Yes: Trachea Midline, Thyromegaly Cardiovascular: Yes: Regular Rate and Rhythm Respiratory: Yes: CTA Bilaterally Gastrointestinal: Yes: Normal Bowel Sounds ...Rectal Exam: Yes: Deferred Renal/: Yes: WNL Musculoskeletal: Yes: WNL Extremities: Yes: WNL Labs: CBC, BMP 01/20/19 05:45 01/20/19 05:45 Problem List - Problems (1) Type 2 diabetes mellitus with diabetic dermatitis Problems reviewed: Yes Code(s): E11.620 - TYPE 2 DIABETES MELLITUS WITH DIABETIC DERMATITIS (2) Eosinophilia Problems reviewed: Yes Code(s): D72.1 - EOSINOPHILIA (3) Lactic acidosis Problems reviewed: Yes Code(s): E87.2 - ACIDOSIS (4) Sepsis Code(s): A41.9 - SEPSIS, UNSPECIFIED ORGANISM Qualifiers: Sepsis type: sepsis due to unspecified organism Sepsis acute organ dysfunction status: without acute organ dysfunction Qualified Code(s): A41.9 - Sepsis, unspecified organism (5) Cat bite of hand Code(s): S61.459A - OPEN BITE OF UNSPECIFIED HAND, INITIAL ENCOUNTER; W55.01XA - BITTEN BY CAT, INITIAL ENCOUNTER Qualifiers: Encounter type: initial encounter Laterality: right Qualified Code(s): S61.451A - Open bite of right hand, initial encounter; W55.01XA - Bitten by cat , initial encounter (6) Cellulitis and abscess of hand Code(s): L03.119 - CELLULITIS OF UNSPECIFIED PART OF LIMB; L02.519 - CUTANEOUS ABSCESS OF UNSPECIFIED HAND Assessment/Plan Current Active Problems dmt2 Anemia (Acute) Eosinophilia (Acute) Hypotension (Acute) Lactic acidosis (Acute) Leukocytosis (Acute) Sepsis (Acute) mulitnodular goiter low tsh Abnormal Lab Results 01/20/19 01/20/19 01/20/19 05:45 05:45 05:45 RBC 3.49 L Hgb 9.8 L Hct 28.9 L Eosinophils % 21.5 H* D Eosinophils % (Manual) 26.0 H Chloride 115 H Anion Gap 5 L Hemoglobin A1c % 6.7 H Calcium 8.2 L Prealbumin 12.4 L TSH 01/20/19 15:00 RBC Hgb Hct Eosinophils % Eosinophils % (Manual) Chloride Anion Gap Hemoglobin A1c % Calcium Prealbumin TSH 0.28 L plan: bgm tid ac metformin 500mg bid
[2019-01-21] MEDS ORDERED: PIPERACILLIN/TAZOBACTAM 3.375 GM VIAL IVPB ONE ×2 (00:53→08:48)
[2019-01-21] MEDS ORDERED: DEXTROSE 5%-WATER - 50 ML IVPB ONE ×2 (00:54→08:48)
[2019-01-21] MEDS: PIPERACILLIN/TAZOB 3.375 GM 3.375 GM in DEXTROSE 5%-WATER - 50 ML IVPB SCH ×2 (01:29→09:21)
[2019-01-21] MEDS: HEPARIN NA (PORCINE) 5,000 UNITS/ML 1ML VIAL SQ SCH ×2 (06:26→14:08)
[2019-01-21] MEDS: INSULIN SLIDING SCALE (NOVOLOG) 1 VIAL SQ SCH ×2 (06:27→11:36)
[2019-01-21 06:55] LABS: BASO % 1.1 % (0-2.0); EOS % 13.1 % (0-4.5); HEMATOCRIT 31.6 % (32.4-45.2); HEMOGLOBIN 10.5 GM/dL (10.7-15.3); LYMPH % 34.1 % (8-40); MCH 27.6 pg (25.7-33.7); MCHC 33.4 g/dl (32.0-36.0); MEAN CELL VOLUME 82.6 fl (80-96); MONO % 6.8 % (3.8-10.2); NEUT % 44.9 % (42.8-82.8); PLATELET COUNT 253 K/MM3 (134-434); RBC 3.82 M/mm3 (3.60-5.2); RDW 14.5 % (11.6-15.6); WHITE BLOOD COUNT 6.4 K/mm3 (4.0-10.0)
[2019-01-21] MEDS ORDERED: metFORMIN HCL 500 MG TABLET (FP) PO SCH (07:00)
[2019-01-21 07:24] LABS: BLOOD UREA NITROGEN 10.5 mg/dL (7-18); CALCIUM 8.9 mg/dL (8.5-10.1); N-TERMINAL BNP 2610.2 pg/ml (5-450); POTASSIUM 4.1 mmol/L (3.5-5.1)
[2019-01-21] MEDS: SODIUM CHLORIDE 1,000 ML IV SCH (09:24)
--- NOTE | 2019-01-21 10:55 | PN ---
Progress Note, Physician History of Present Illness: pulmonary alert,comfortable,-sob,-cp,+ mild cough. afebrile - Current Medication List Current Medications: Active Medications Albuterol Sulfate (Ventolin 0.083% Nebulizer Soln -) 1 amp NEB Q4H PRN PRN Reason: SHORT OF BREATH/WHEEZING Heparin Sodium (Porcine) (Heparin -) 5,000 unit SQ TID [facility] Last Admin: 01/21/19 06:26 Dose: 5,000 unit Sodium Chloride (Normal Saline -) 1,000 mls @ 75 mls/hr IV ASDIR [facility] Last Admin: 01/21/19 09:24 Dose: 75 mls/hr Insulin Aspart (Novolog Vial Sliding Scale -) 1 vial SQ TIDAC [facility]; Protocol Last Admin: 01/21/19 06:27 Dose: Not Given Metformin HCl (Glucophage -) 500 mg PO BID@0700,1630 [facility] Last Admin: 01/21/19 09:21 Dose: Not Given - Objective Vital Signs: Vital Signs Temperature 97.9 F 01/21/19 08:27 Pulse Rate 89 01/21/19 08:27 Respiratory Rate 18 01/21/19 08:29 Blood Pressure 142/83 01/21/19 08:27 O2 Sat by Pulse Oximetry (%) 98 01/21/19 08:29 Constitutional: Yes: Well Nourished, Calm Eyes: Yes: WNL HENT: Yes: WNL Neck: Yes: WNL Cardiovascular: Yes: Regular Rate and Rhythm, S1, S2 Respiratory: Yes: CTA Bilaterally Gastrointestinal: Yes: Normal Bowel Sounds, Soft Extremities: Yes: WNL Edema: Yes Labs: CBC, BMP 01/21/19 05:55 01/21/19 05:55 INR, PTT INR 1.14 (0.82-1.09) 01/18/19 10:35 Problem List - Problems (1) Anemia Code(s): D64.9 - ANEMIA, UNSPECIFIED (2) Hypotension Code(s): I95.9 - HYPOTENSION, UNSPECIFIED Qualifiers: Hypotension type: hypotension due to hypovolemia Qualified Code(s): I95.89 - Other hypotension; E86.1 - Hypovolemia (3) Lactic acidosis Code(s): E87.2 - ACIDOSIS (4) Leukocytosis Code(s): D72.829 - ELEVATED WHITE BLOOD CELL COUNT, UNSPECIFIED Qualifiers: Leukocytosis type: bandemia Qualified Code(s): D72.825 - Bandemia (5) Cough Code(s): R05 - COUGH (6) Eosinophilia Code(s): D72.1 - EOSINOPHILIA Assessment/Plan IMP FEVER ? ETIOLOGY ? ,?VIRAL,INFLUENZA SCREEN NEGATIVE PULMONARY HTN HTN EOSINOPHILIA IMPROVING NIDDM H/O BREAST CA S/P LEFT LUMPECTOMY,RT ELEVATED LACTATE LEVEL IMPROVED HYPOTENSION IMPROVED ANEMIA PLAN OFF ABX PER ID O2 NEEDED TREND EOSINOPHIL CT PFTS OUTPATIENT MONITOR LYTES,CBC DR RAO Problem List - Problems (1) Anemia Code(s): D64.9 - ANEMIA, UNSPECIFIED (2) Hypotension Code(s): I95.9 - HYPOTENSION, UNSPECIFIED Qualifiers: Hypotension type: hypotension due to hypovolemia Qualified Code(s): I95.89 - Other hypotension; E86.1 - Hypovolemia (3) Lactic acidosis Code(s): E87.2 - ACIDOSIS (4) Leukocytosis Code(s): D72.829 - ELEVATED WHITE BLOOD CELL COUNT, UNSPECIFIED Qualifiers: Leukocytosis type: bandemia Qualified Code(s): D72.825 - Bandemia (5) Cough Code(s): R05 - COUGH (6) Eosinophilia Code(s): D72.1 - EOSINOPHILIA
--- NOTE | 2019-01-21 12:43 | PN ---
Progress Note, Physician History of Present Illness: stable no complaints had dirrhoea better now - Current Medication List Current Medications: Active Medications Albuterol Sulfate (Ventolin 0.083% Nebulizer Soln -) 1 amp NEB Q4H PRN PRN Reason: SHORT OF BREATH/WHEEZING Heparin Sodium (Porcine) (Heparin -) 5,000 unit SQ TID [facility] Last Admin: 01/21/19 06:26 Dose: 5,000 unit Sodium Chloride (Normal Saline -) 1,000 mls @ 75 mls/hr IV ASDIR [facility] Last Admin: 01/21/19 09:24 Dose: 75 mls/hr Insulin Aspart (Novolog Vial Sliding Scale -) 1 vial SQ TIDAC [facility]; Protocol Last Admin: 01/21/19 11:36 Dose: Not Given Metformin HCl (Glucophage -) 500 mg PO BID@0700,1630 [facility] Last Admin: 01/21/19 09:21 Dose: Not Given - Objective Vital Signs: Vital Signs Temperature 97.9 F 01/21/19 08:27 Pulse Rate 89 01/21/19 08:27 Respiratory Rate 18 01/21/19 08:29 Blood Pressure 142/83 01/21/19 08:27 O2 Sat by Pulse Oximetry (%) 98 01/21/19 08:29 Constitutional: Yes: No Distress, Calm Cardiovascular: Yes: S1, S2 Respiratory: Yes: Regular, CTA Bilaterally Gastrointestinal: Yes: Normal Bowel Sounds, Soft Musculoskeletal: Yes: WNL Extremities: Yes: WNL Neurological: Yes: Alert, Oriented Psychiatric: Yes: Alert, Oriented Labs: CBC, BMP 01/21/19 05:55 01/21/19 05:55 INR, PTT INR 1.14 (0.82-1.09) 01/18/19 10:35 Assessment/Plan This is an 83 female with a hx of NIDDM,HTN,admitted with sepsis. * Sepsis UTI abn liver enzymes * NIDDM * hypotension problem List - Problems (1) Anemia Code(s): D64.9 - ANEMIA, UNSPECIFIED (2) Hypotension Code(s): I95.9 - HYPOTENSION, UNSPECIFIED Qualifiers: Hypotension type: hypotension due to hypovolemia Qualified Code(s): I95.89 - Other hypotension; E86.1 - Hypovolemia (3) Lactic acidosis Code(s): E87.2 - ACIDOSIS (4) Leukocytosis Code(s): D72.829 - ELEVATED WHITE BLOOD CELL COUNT, UNSPECIFIED Qualifiers: Leukocytosis type: bandemia Qualified Code(s): D72.825 - Bandemia (5) Cough Code(s): R05 - COUGH (6) Eosinophilia Code(s): D72.1 - EOSINOPHILIA plan no abx monitor for dirrhoea
[2019-01-21 14:05] VITALS: BP 148/77; PULSE 82; TEMP 98
--- NOTE | 2019-01-21 14:53 | CON.CARD ---
Cardiology Consult (text) - Consultation Consultation Note: cc: weakness, dysuria hpi: 83 f hx htn, dm here with weakness, dysuria. Also chills, n/v, dec appetite. No cp sob palps dizzy loc pnd orthopnea le edema. Found to have uti , sepsis. After abx, ivfs, feeling much better, asking to go home. pmh: per hpi psh: hysterectomy social: ex tob fam: no premature cad ros: per hpi; all others nl meds: Home Medications Medication Instructions Recorded Atenolol [Tenormin] 25 mg PO DAILY 08/29/17 Albuterol 0.083% Nebulizer Amber 1 amp NEB Q4H PRN #2 inhaler 01/21/19 [Ventolin 0.083% Nebulizer Soln -] metFORMIN HCL [Glucophage -] 500 mg PO BID@0700,1630 #60 tablet 01/21/19 pe: Vital Signs Period Temp Pulse Resp BP Sys/Vazquez Pulse Ox Last 24 Hr 97.4 F-98.4 F 82-92 16-20 128-149/72-95 95-98 nad no jvd rrr s1s2 no mrg ctabl nl eff aao3 no le e/c/c abd nt nd pos bs no jaundice diaphoresis pos dp pt no carotid bruits Laboratory Last Values WBC 6.4 K/mm3 (4.0-10.0) 01/21/19 05:55 RBC 3.82 M/mm3 (3.60-5.2) 01/21/19 05:55 Hgb 10.5 GM/dL (10.7-15.3) L 01/21/19 05:55 Hct 31.6 % (32.4-45.2) L 01/21/19 05:55 MCV 82.6 fl (80-96) 01/21/19 05:55 MCH 27.6 pg (25.7-33.7) 01/21/19 05:55 MCHC 33.4 g/dl (32.0-36.0) 01/21/19 05:55 RDW 14.5 % (11.6-15.6) 01/21/19 05:55 Plt Count 253 K/MM3 (134-434) 01/21/19 05:55 MPV 8.0 fl (7.5-11.1) 01/21/19 05:55 Absolute Neuts (auto) 2.9 K/mm3 (1.5-8.0) 01/21/19 05:55 Neutrophils % 44.9 % (42.8-82.8) 01/21/19 05:55 Neutrophils % (Manual) 51.0 % (42.8-82.8) 01/20/19 05:45 Band Neutrophils % 1.0 % 01/20/19 05:45 Lymphocytes % 34.1 % (8-40) D 01/21/19 05:55 Lymphocytes % (Manual) 13.0 % (8-40) 01/20/19 05:45 Monocytes % 6.8 % (3.8-10.2) 01/21/19 05:55 Monocytes % (Manual) 4 % (3.8-10.2) 01/20/19 05:45 Eosinophils % 13.1 % (0-4.5) H 01/21/19 05:55 Eosinophils % (Manual) 26.0 % (0-4.5) H 01/20/19 05:45 Basophils % 1.1 % (0-2.0) 01/21/19 05:55 Basophils % (Manual) 2.0 % (0-2.0) 01/20/19 05:45 Myelocytes % (Man) 0 % (0-2) 01/20/19 05:45 Promyelocytes % (Man) 0 % (0-2) 01/20/19 05:45 Blast Cells % (Manual) 0 % (0-0) 01/20/19 05:45 Nucleated RBC % 0 % (0-0) 01/21/19 05:55 Metamyelocytes 0 % (0-2) 01/20/19 05:45 Platelet Estimate Normal 01/20/19 05:45 PT with INR 12.7 SEC (10.2-13.0) 01/18/19 10:35 INR 1.14 (0.82-1.09) 01/18/19 10:35 PTT (Actin FS) 26.3 SECONDS (25.2-36.5) 01/18/19 10:35 VBG pH 7.39 (7.31-7.41) 01/18/19 10:35 POC VBG pCO2 35.4 mmHg (38-52) L 01/18/19 10:35 POC VBG pO2 < 49 mmHg (28-48) H 01/18/19 10:35 VBG HCO3 20.8 mmol/L (23-29) L 01/18/19 10:35 VBG O2 Sat (Ancelmo) 70.5 % (70-80) 01/18/19 10:35 VBG Base Excess -3.2 meq/l (-2-2) L 01/18/19 10:35 Sodium 142 mmol/L (136-145) 01/21/19 05:55 Potassium 4.1 mmol/L (3.5-5.1) 01/21/19 05:55 Chloride 112 mmol/L (98-107) H 01/21/19 05:55 Carbon Dioxide 24 mmol/L (21-32) 01/21/19 05:55 Anion Gap 6 MMOL/L (8-16) L 01/21/19 05:55 BUN 10.5 mg/dL (7-18) 01/21/19 05:55 Creatinine 1.0 mg/dL (0.55-1.3) 01/21/19 05:55 Est GFR (CKD-EPI)AfAm 59.49 01/21/19 05:55 Est GFR (CKD-EPI)NonAf 51.33 01/21/19 05:55 POC Glucometer 150 UNITS (80-120) 01/21/19 11:27 Random Glucose 95 mg/dL (74-106) 01/21/19 05:55 Hemoglobin A1c % 6.7 % (4.2-6.3) H 01/20/19 05:45 Lactic Acid 2.1 mmol/L (0.4-2.0) H 01/19/19 00:05 Calcium 8.9 mg/dL (8.5-10.1) 01/21/19 05:55 Phosphorus 2.8 mg/dL (2.5-4.9) 01/20/19 05:45 Magnesium 1.9 mg/dL (1.8-2.4) 01/20/19 05:45 Total Bilirubin 1.1 mg/dL (0.2-1) H 01/19/19 06:38 AST 23 U/L (15-37) 01/19/19 06:38 ALT 28 U/L (13-61) 01/19/19 06:38 Alkaline Phosphatase 56 U/L (45-117) 01/19/19 06:38 B-Natriuretic Peptide 2610.2 pg/ml (5-450) H 01/21/19 05:55 Total Protein 5.3 g/dl (6.4-8.2) L 01/19/19 06:38 Albumin 2.6 g/dl (3.4-5.0) L 01/19/19 06:38 Prealbumin 12.4 mg/dl (20-40) L 01/20/19 05:45 Triglycerides 150 mg/dL (0-150) 01/21/19 05:55 Cholesterol 183 mg/dL (50-200) 01/21/19 05:55 Total LDL Cholesterol 78 mg/dL (5-100) 01/21/19 05:55 HDL Cholesterol 71 mg/dL (40-60) H 01/21/19 05:55 Lipase 153 U/L (73-393) 01/18/19 10:48 Vitamin B12 435 pg/ml (193-986) 01/20/19 05:45 Beta-Hydroxybutyrate 1.7 mg/dL (0.2-2.8) 01/18/19 10:48 TSH 0.28 uIU/ml (0.358-3.74) L 01/20/19 15:00 Free T4 1.35 ng/dl (0.76-1.46) 01/19/19 06:38 Free T3 2.0 pg/ml (2.0-4.4) 01/20/19 05:45 Total T3 70.00 ng/dl (71-180) L 01/20/19 05:45 Urine Color Yellow 01/18/19 15:27 Urine Appearance Slightly 01/18/19 15:27 Urine pH 5.5 (4.5-8) 01/18/19 15:27 Urine Protein Trace (NEGATIVE) 01/18/19 15:27 Urine Glucose (UA) Negative (NEGATIVE) 01/18/19 15:27 Urine Ketones Negative (NEGATIVE) 01/18/19 15:27 Urine Blood Negative (NEGATIVE) 01/18/19 15:27 Urine Nitrite Negative (NEGATIVE) 01/18/19 15: Urine Bilirubin Negative (NEGATIVE) 01/18/19 15:27 Urine Urobilinogen 0.2 (0.2-1.0) 01/18/19 15:27 Ur Leukocyte Esterase Trace (NEGATIVE) H 01/18/19 15:27 Urine RBC 2-5 /hpf (0-4) 01/18/19 15:27 Urine WBC 10-20 (NEGATIVE) 01/18/19 15:27 Ur Transition Epith Cell Few /hpf 01/18/19 15:27 Urine Bacteria Few /hpf (NEGATIVE) 01/18/19 15:27 Influenza A (Rapid) Negative (Negative) 01/18/19 15:18 Influenza B (Rapid) Negative (Negative) 01/18/19 15:18 tele: sr cta chest: no pe, no chf ecg: sr nl intervals no ischemic changes echo 12/2018: nl lv/rv, mild mr, mod-sev tr, mild phtn, mild as a/p: 83 f hx htn, dm here with weakness, dysuria. uti, sepsis: -improving with abx, ivfs -abx per ID htn: -bp low initially due to sepsis, now improved with ivfs/abx, can resume home bp meds mild as, mod-sev tr: -no signs chf or valvular symptoms -outpt monitoring cardiac peace stable for dc
--- NOTE | 2019-01-21 18:02 | DS ---
Physical Exam: SUBJECTIVE: [facility] Sitting in wheelchair, with family nearby. States that she wants to go home OBJECTIVE: Vital Signs Period Temp Pulse Resp BP Sys/Vazquez Pulse Ox Last 24 Hr 97.8 F-98.2 F 82-92 18-20 128-149/72-95 95-98 01/18/19 01/18/19 01/18/19 09:42 11:05 14:33 Temperature 98.4 F 100.5 F H 98.4 F 01/18/19 01/18/19 01/19/19 09:42 20:17 02:00 Blood Pressure 98/57 L 108/57 L 89/48 L 01/19/19 01/19/19 01/19/19 05:50 09:00 14:00 Blood Pressure 94/52 L 93/49 L 97/45 L 01/19/19 01/19/19 01/21/19 17:50 18:00 14:04 Blood Pressure 132/45 L 137/59 L 148/77 Physical Exam general: well-appearing. sitting up in bed, in NAD HEENT: NCAT neck: supple cardio: S1, S2 RRR. no r/m/g pulm : CTA b/l. no accessory m usage abdomen: soft, nontender, nondistended. 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 grossly intact LABS Laboratory Results - last 24 hr 01/20/19 01/20/19 01/21/19 05:45 22:14 05:55 WBC RBC Hgb Hct MCV MCH MCHC RDW Plt Count MPV Absolute Neuts (auto) Neutrophils % Lymphocytes % Monocytes % Eosinophils % Basophils % Nucleated RBC % Sodium 142 Potassium 4.1 Chloride 112 H Carbon Dioxide 24 Anion Gap 6 L BUN 10.5 Creatinine 1.0 Est GFR (CKD-EPI)AfAm 59.49 Est GFR (CKD-EPI)NonAf 51.33 POC Glucometer 109 Random Glucose 95 Calcium 8.9 Ionized Calcium 5.1 B-Natriuretic Peptide 2610.2 H Triglycerides 150 Cholesterol 183 Total LDL Cholesterol 78 HDL Cholesterol 71 H Free T3 2.0 Total T3 70.00 L 01/21/19 01/21/19 01/21/19 05:55 06:24 11:27 WBC 6.4 RBC 3.82 Hgb 10.5 L Hct 31.6 L MCV 82.6 MCH 27.6 MCHC 33.4 RDW 14.5 Plt Count 253 MPV 8.0 Absolute Neuts (auto) 2.9 Neutrophils % 44.9 Lymphocytes % 34.1 D Monocytes % 6.8 Eosinophils % 13.1 H Basophils % 1.1 Nucleated RBC % 0 Sodium Potassium Chloride Carbon Dioxide Anion Gap BUN Creatinine Est GFR (CKD-EPI)AfAm Est GFR (CKD-EPI)NonAf POC Glucometer 110 150 Random Glucose Calcium Ionized Calcium B-Natriuretic Peptide Triglycerides Cholesterol Total LDL Cholesterol HDL Cholesterol Free T3 Total T3 CBC 01/18/19 01/19/19 01/20/19 10:35 06:38 05:45 WBC 21.0 H 14.9 H 7.0 Hgb 11.8 10.7 9.8 L Hct 36.7 33.4 28.9 L Plt Count 289 231 225 Eosinophils % 10.2 H D 21.5 H* D 01/21/19 05:55 WBC 6.4 Hgb 10.5 L Hct 31.6 L Plt Count 253 Eosinophils % 13.1 H Coags 01/18/19 10:35 PT with INR 12.7 INR 1.14 PTT (Actin FS) 26.3 Additional testing 01/19/19 01/20/19 01/20/19 06:38 05:45 05:45 Sodium Potassium Chloride BUN Creatinine POC Glucometer B-Natriuretic Peptide Prealbumin 12.4 L Triglycerides Cholesterol Total LDL Cholesterol HDL Cholesterol Vitamin B12 435 TSH 0.09 L Free T4 1.35 Free T3 2.0 Total T3 70.00 L Thyroid Stim Immunoglob 01/20/19 01/20/19 01/20/19 15:00 15:00 22:14 Sodium Potassium Chloride BUN Creatinine POC Glucometer 109 B-Natriuretic Peptide Prealbumin Triglycerides Cholesterol Total LDL Cholesterol HDL Cholesterol Vitamin B12 TSH 0.28 L Free T4 Free T3 Total T3 Thyroid Stim Immunoglob Pending 01/21/19 01/21/19 05:55 06:24 Sodium 142 Potassium 4.1 Chloride 112 H BUN 10.5 Creatinine 1.0 POC Glucometer 110 B-Natriuretic Peptide 2610.2 H Prealbumin Triglycerides 150 Cholesterol 183 Total LDL Cholesterol 78 HDL Cholesterol 71 H Vitamin B12 TSH Free T4 Free T3 Total T3 Thyroid Stim Immunoglob Microbiology 01/18/19 15:27 Urine - Urine Clean Catch Urine Culture - Final 01/18/19 10:45 Blood - Peripheral Venous Blood Culture - Preliminary NO GROWTH OBTAINED AFTER 48 HOURS, INCUBATION TO CONTINUE FOR 3 DAYS. 01/18/19 10:45 Blood - Peripheral Venous Blood Culture - Preliminary NO GROWTH OBTAINED AFTER 48 HOURS, INCUBATION TO CONTINUE FOR 3 DAYS. Imaging chest CTA: 01/18: negative for PE. mild b/l atelectasis, atherosclerotic changes. enlarged thyroid gland, bibasilar consolidation R>L. ECHO: EF 65%, mod , mod-severe TR, eccentric jet HOSPITAL COURSE: Date of Admission:01/18/19 Date of Discharge: 01/21/19 Admission diagnosis: sepsis 2/2 unknown etiology 83 female with a hx of NIDDM,HTN and hx of UTI's, who presentd with complaint of dysuria, urinary frequency,chills, LIND,intermittent dry cough,weakness , and poor appetite since one day prior to admission. Denied abdominal pain, vomiting ,hematuria, cp, sob, or palpitations. Patient stated that she was recently treated with Macrobid for UTI and completed a course of antibiotics. Was admitted for sepsis 2/2 unknown etiology and worked up accordingly: #Sepsis 2/2 unknown etiology -may have been 2/2 UTI, though UA WNL, recently tx for UTI - may have not fully improved -on d/c , without leukocytosis and no longer febrile. -with abdominal pain. 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 off abx on d/c, as no longer hypotensive, febrile or with leukocytosis -lactic normalized -incentive spirometer was given for atelectasis -ucx, blood cx (-) thus far -ID: Dr. Madison #Diarrhea -may be 2/2 ischemic gut, as pt was having similar sx previous to admission -per ID, recommended to get c. diff stool sample prior to d/c - and pt to follow with ID in office to discuss the result within the wk #Enlarged thyroid gland -recommended thyroid sono as outpatient and endocrine f/u -TFT's: low TSH (0.09), TSH 0.28 #Transaminitis - resolved #NIDDM -while in hospital, home meds were held -ISS, BGM ACHS -a1c 6.7%; pt was recommended to c/w metformin 500 mg PO BID by endocrinology #HTN-controlled -was c/w losartan and cozaar after hypotension resolved Minutes to complete discharge: 45 Discharge Summary Problems reviewed: Yes Reason For Visit: SEPSIS Condition: Stable - Instructions Diet, Activity, Other Instructions: You were in the hospital because you had an infection, it was possible that this was a urinary infection or an abdominal infection. You also had diarrhea while you were here, which improved. You were treated with IV antibiotics. You are being sent home. Lab findings You were found to have an elevated BNP in the hospital. Your ECHO (picture of your heart) showed that you have tricuspid regurgitation. You will need to be closely followed by a licensing representative. We are referring you to Dr. Ibanez. Please see him this week. Medications You may continue your home medications. 1. You are recommended to take: metformin 500mg twice a day for your diabetes by the gas meter installer helper that saw you in the hospital. 2. You may take albuterol inhaler - 1 puff every 4 hours as needed for shortness of breath. Testing -You will need to have Pulmonary Function testing done with a lung doctor as an outpatient. -the infection doctor requested for your stool sample to be analyzed before your discharge. This will be followed up with him in his office. -You will also need a repeat thyroid ultrasound with your gas meter installer helper to follow up your enlarged thyroid Follow-up Please see the following doctors upon discharge: -Your primary care doctor, Dr. Hendricks - this week to discuss your visit -Dr. Madison, the infectious disease doctor who saw you in the hospital - this week. to discuss your stool sample testing. -Your home gas meter installer helper, from [place] - please follow in 1 week. You will need a thyroid ultrasound to check on your enlarged thyroid. -Lung doctor, Dr. Joiner who saw you in the hospital - please see in 1 week for pulmonary function testing. -A licensing representative, Dr. Ibanez - 1 week Referrals: Ludmila Madison MD [Staff Physician] - 1 Week Popeye Hendricks MD [Primary Care Provider] - 01/23/19 Patricio Ibanez MD [Staff Physician] - 1 Week Disposition: VNS/HOME HEALTH CARE - Home Medications Comprehensive Discharge Medication List: Ambulatory Orders Atenolol [Tenormin] 25 mg PO DAILY 08/29/17 Albuterol 0.083% Nebulizer Amber [Ventolin 0.083% Nebulizer Soln -] 1 amp NEB Q4H PRN #2 inhaler 01/21/19 metFORMIN HCL [Glucophage -] 500 mg PO BID@0700,1630 #60 tablet 01/21/19 This patient is new to me today: No Emergency Visit: No Critical Care patient: No - Discharge Referral Referred to [facility] No ATTENDING PHYSICIAN STATEMENT I saw and evaluated the patient. I reviewed the resident's note and discussed the case with the resident. I agree with the resident's findings and plan as documented. SUBJECTIVE: OBJECTIVE: ASSESSMENT AND PLAN:
[2019-01-23 14:07] LABS: THYROID STIM IMMUNOGLOBULIN <0.10 IU/L (0.00-0.55)
== END 2019-01-21 15:04 | disposition home health service (06) | DRG 871 ==
LOC: FER 09:42 → J4W 20:17
PROVIDERS: ADMIT Internal Medicine; ATTEND Internal Medicine
DX: A41.9 Sepsis, unspecified organism (principal); G93.41 Metabolic encephalopathy; N39.0 Urinary tract infection, site not specified; E87.2 Acidosis; E11.9 Type 2 diabetes mellitus without complications; I10 Essential (primary) hypertension; I95.9 Hypotension, unspecified; I27.20 Pulmonary hypertension, unspecified; Z85.3 Personal history of malignant neoplasm of breast; D72.829 Elevated white blood cell count, unspecified; D72.1 Eosinophilia; R19.7 Diarrhea, unspecified; R74.0 Nonspecific elevation of levels of transaminase and lactic acid dehydrogenase [LDH]; D64.9 Anemia, unspecified
CPT/HCPCS: 36415; 71045-TC-FY; 71275-TC; 80048; 80053; 80061; 81003; 81015; 82010; 82330; 82607; 82803; 82962; 83036; 83605; 83690; 83721; 83735; 83880; 84100; 84134; 84439; 84443; 84445; 84480; 84481; 85025; 85610; 85730; 86376; 86682; 87040; 87086; 87804; 93005; 93306-TC; 94010; 97116-GP; 97161-GP; 99285-25; J0131; J1644; J7030

== ENCOUNTER 2019-09-10 06:48 | Emergency (ER) | payer OTHER, MEDICARE ==
[2019-09-10 06:55] VITALS: BP 156/97; PULSE 99; TEMP 98; BMI 25.7
[2019-09-10 08:03] LABS: EPITHELIAL CELLS FEW /hpf
[2019-09-10] MEDS ORDERED: CIPROFLOXACIN 250 MG TABLET (RESTRICTED TO ID) PO ONE ×2 (08:03→08:09)
--- NOTE | 2019-09-10 08:07 | PDOC ---
History of Present Illness <Phil Lujan - Last Filed: 09/10/19 08:47> - General History Source: Patient Exam Limitations: No Limitations - History of Present Illness Initial Comments: 09/10/19 18:17 [id number] with h/o multiple prior UTIs, HTN, HLD, goiter (not medicated), right breast CA (2006), and DM, who used to be a practicing RN, and who p/w burning on urination since last night which she notes is the same as her prior UTIs. Denies back pain, chest pain, abdominal pain, f/c/n/v/d/c, hematuria, lightheadedness, dizziness, or any other symptoms. States that she has multiple medication allergies including antibiotic allergies but also notes that ciprofloxacin "works every time" for her UTIs. <Radha Cam - Last Filed: 09/11/19 11:27> - General Chief Complaint: Urinary Problem Stated Complaint: "I need medication for my UTI" Time Seen by Provider: 09/10/19 07:39 Past History <ClydeeddyPhil - Last Filed: 09/10/19 08:47> - Medical History Anemia: No Asthma: No Cancer: Yes (RIGHT BREAST 2006) Cardiac Disorders: No CVA: No COPD: No CHF: No DVT: No Dementia: No Diabetes: Yes GI Disorders: No Disorders: (UTI'S) HTN: Yes Hypercholesterolemia: Yes Liver Disease: No Seizures: No Thyroid Disease: Yes (GOITER-NO MEDS) - Surgical History Abdominal Surgery: No Appendectomy: No Cardiac Surgery: No Cholecystectomy: No Lung Surgery: No Neurologic Surgery: No Orthopedic Surgery: (Rotator Cuff x2) - Immunization History Td Vaccination: No TDAP Vaccination: No Immunization Up to Date: No - Psycho-Social/Smoking History Smoking Status: No Smoking History: Never smoked Have you smoked in the past 12 months: No Number of Cigarettes Smoked Daily: 0 If you are a former smoker, when did you quit?: 2015 - Substance Abuse Hx (Audit-C & DAST Scrn) How often the patient has a drink containing alcohol: Never Score: In Men: 4 or > Positive; In Women: 3 or > Positive: 0 Screen Result (Pos requires Nsg. Audit-10AR): Negative In the last yr the pt used illegal drug/Rx for NonMed reason: No Score: Yes response is considered Positive: 0 Screen Result (Positive result requires Nsg. DAST-10): Negative <Radha Cam - Last Filed: 09/11/19 11:27> - Medical History Allergies/Adverse Reactions: Allergies Allergy/AdvReac Type Severity Reaction Status Date / Time bacitracin Allergy Intermediate Verified 01/18/19 09:43 erythromycin base Allergy Intermediate Rash Verified 01/18/19 09:43 [Erythromycin Base] Penicillins Allergy Intermediate Rash Verified 09/10/19 06:57 tetracycline [Tetracycline] Allergy Intermediate Rash Verified 01/18/19 09:43 streptomycin [Streptomycin] Allergy Verified 01/18/19 09:43 Nhakduj-Tgd-Tgn Reductase AdvReac Intermediate myalgias Verified 01/18/19 09:43 Inhibitor Home Medications: Ambulatory Orders Atenolol [Tenormin] 25 mg PO DAILY 08/29/17 Albuterol 0.083% Nebulizer Amber [Ventolin 0.083% Nebulizer Soln -] 1 amp NEB Q4H PRN #2 inhaler 01/21/19 Glimepiride 1 mg PO DAILY 05/13/19 levoFLOXacin [Levaquin -] 250 mg PO DAILY #7 tablet 05/13/19 Ciprofloxacin [Cipro (Restricted To Id)] 250 mg PO BID #6 tablet 09/10/19 Review of Systems - Review of Systems Able to Perform ROS?: Yes Comments:: GEN: no fever, chills, night sweats, generalized weakness, malaise, or unintentional weight change HEENT: no ear pain, congestion, sore throat, rhinorrhea, nosebleed, vision change, or eye pain CV: no chest pain, palpitations, lightheadedness, syncope, edema, or exercise intolerance RESP: no cough, wheezing, or SOB GI: no abdominal pain, nausea, vomiting, diarrhea, constipation, appetite change, or white/black/bloody stool : dysuria, frequency, no hematuria, incontinence, retention, pruritis, bleeding, or discharge MSK: no muscle weakness or pain, no muscle wasting, no joint swelling or pain NEURO: no headache, seizure, vertigo, imbalance, numbness, tingling, focal weakness, or difficulty walking/talking PSYCH: no insomnia, behavior change, SI, HI, or substance use SKIN: no prutitis, excessive dryness, jaundice, rash, cuts, or unexplained bruises ROS otherwise negative except as noted in HPI <Radha Cam - Last Filed: 09/11/19 11:27> *Physical Exam - Vital Signs Last Vital Signs Temp Pulse Resp BP Pulse Ox 98 F 99 H 18 156/97 98 09/10/19 06:50 09/10/19 06:50 09/10/19 06:50 09/10/19 06:50 09/10/19 06:50 <Phil Lujan - Last Filed: 09/10/19 08:47> - Vital Signs Last Vital Signs Temp Pulse Resp BP Pulse Ox 98 F 99 H 18 156/97 98 09/10/19 06:50 09/10/19 06:50 09/10/19 06:50 09/10/19 06:50 09/10/19 06:50 - Physical Exam 09/11/19 11:20 GENERAL: elderly, very pleasant, nontoxic-appearing, no distress, answers questions appropriately HEENT: PERRLA, EOMI, moist mucous membranes NECK/BACK: no midline ttp, no spinal stepoff or deformity, no hematoma, full ROM, neck supple CARDIOVASCULAR: regular rate/rhythm, no MGR, strong peripheral pulses, capillary refill <2 seconds, extremities wwp, no edema LUNGS/RESPIRATORY: no respiratory distress, CTAB GI/ABDOMEN: symmetric [id number], normoactive BS, soft, no ttp, no midline pulsatile masses : no CVA tenderness on either side MSK/EXTREMITIES: no acute-appearing muscle atrophy, no acute deformity DERM/SKIN: warm and dry, no pallor, no jaundice, no rash, no pathologic- appearing bruising, no skin breakdown, no cuts, no lesions NEUROLOGICAL: GCS 15, CN II-XII grossly intact, 5/5 strength proximally and distally, no facial droop <Radha Cam - Last Filed: 09/11/19 11:27> ED Treatment Course - ADDITIONAL ORDERS Additional order review: Laboratory Results 09/10/19 07:15 Urine Color Yellow Urine Appearance Slightly Urine pH 5.5 Urine Protein Trace Urine Glucose (UA) Negative Urine Ketones Negative Urine Blood 2+ H Urine Nitrite Negative Urine Bilirubin Negative Urine Urobilinogen 0.2 Ur Leukocyte Esterase 2+ Urine RBC 5-10 Urine WBC 10-20 Ur Transition Epith Cell Few Urine Bacteria Few - Medications Given in the ED: ED Medications Discontinued Medications Generic Name Dose Route Start Last Admin Trade Name Remington PRN Reason Stop Dose Admin Ciprofloxacin 250 mg 09/10/19 08:03 09/10/19 08:11 Cipro (Restricted To Id) PO 09/10/19 08:04 250 mg ONCE ONE Administration <Phil Lujan - Last Filed: 09/10/19 08:47> - ADDITIONAL ORDERS Additional order review: Laboratory Results 09/10/19 07:15 Urine Color Yellow Urine Appearance Slightly Urine pH 5.5 Urine Protein Trace Urine Glucose (UA) Negative Urine Ketones Negative Urine Blood 2+ H Urine Nitrite Negative Urine Bilirubin Negative Urine Urobilinogen 0.2 Ur Leukocyte Esterase 2+ <Radha Cam - Last Filed: 09/11/19 11:27> Medical Decision Making - Medical Decision Making 09/11/19 11:21 [id number] with multiple prior UTI p/w painful urination without back pain or other systemic symptoms. Initial Vital Signs Temp Pulse Resp BP Pulse Ox 98 F 99 H 18 156/97 98 09/10/19 06:50 09/10/19 06:50 09/10/19 06:50 09/10/19 06:50 09/10/19 06:50 DDX IBNLT: most likely UTI. Very unlikely to be pyelonephritis or renal colic given gradual onset, lack of back pain or systemic symptoms, presence of burning-type pain only when urinating, and normal vital signs (repeat HR at rest is 80). Less likely vaginal lesion, vulvuvaginal candidiasis, interstitial cystitis, malignancy, hernia, appendicitis, proctitis, diverticulitis, or any other more serious etiology although all of these are considered and determined not to fit the clinical picture. W/U ordered: UA/UCx 09/10/19 07:15 Urine Color Yellow Urine Appearance Slightly Urine pH 5.5 Urine Protein Trace Urine Glucose (UA) Negative Urine Ketones Negative Urine Blood 2+ H Urine Nitrite Negative Urine Bilirubin Negative Urine Urobilinogen 0.2 Ur Leukocyte Esterase 2+ Urine RBC 5-10 Urine WBC 10-20 Ur Transition Epith Cell Few Urine Bacteria Few Patient has positive UA and will be given dose of cipro here in the ED with remainder of course sent to her pharmacy. The Pt is appropriate for discharge with close outpatient follow up. Workup is not concerning for emergency-level pathology at this time. The Pt is comfortable with this plan and will follow up with her primary care provider in 1-3 days. She will take OTC pain medications, pyridium, etc. for pain. Specific return precautions are discussed and she will come back to the ER if necessary. <Radha Cam - Last Filed: 09/11/19 11:27> Discharge - Discharge Information Problems reviewed: Yes - Admission No <Phil Lujan - Last Filed: 09/10/19 08:47> - Admission No <Radha Cam - Last Filed: 09/11/19 11:27> - Discharge Information Clinical Impression/Diagnosis: UTI (urinary tract infection) Qualifiers: Urinary tract infection type: site unspecified Hematuria presence: without hematuria Qualified Code(s): N39.0 - Urinary tract infection, site not specified Condition: Stable Disposition: HOME - Additional Discharge Information Prescriptions: Ciprofloxacin [Cipro (Restricted To Id)] 250 mg PO BID #6 tablet - Follow up/Referral Referrals: Popeye Hendricks MD [Staff Physician] - - Patient Discharge Instructions Patient Printed Discharge Instructions: Urinary Tract Infection Additional Instructions: You were seen in the ER for painful urination. We did urine labs and you have a urinary tract infection, but there were no other abnormalities. We gave you a do se of antibiotic here. After our assessment, we do not believe you are having a medical emergency at this time, and we believe you are safe to go home. 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 Please take over the counter pain medications for pain, following the instructions on the medication label. For painful urination, please take pyridium (azo) which you can get [id number] at the pharmacy. This will turn your urine orange and it is nothing to worry about while you are taking this medication. Follow up with your primary doctor in 1-3 days. Call their clinic [facility], tell them you were seen in the ER, and tell them you need an appointment. Please come back to the ER at any time, 24 hours a day, for any new or worsening symptoms, like worsened pain, increased or foul-smelling discharge, fever, genital pain or swelling, or other emergency symptoms. If you are having severe or life threatening symptoms, or symptoms that make it unsafe to drive or have someone drive you, please call 911. Print Language: [id number]
== END 2019-09-10 08:53 | disposition home or self-care (01) ==
LOC: FER 06:48
DX: N39.0 Urinary tract infection, site not specified (principal)
CPT/HCPCS: 81003; 81015; 87086; 87186; 99283-25

== ENCOUNTER 2020-01-16 12:24 | Emergency (ER) | payer OTHER, MEDICARE ==
[2020-01-16 12:35] VITALS: BP 150/64; PULSE 68; TEMP 97.5; BMI 27.4
[2020-01-16] MEDS ORDERED: ACETAMINOPHEN 325 MG TABLET (FP) PO ONE (12:46)
[2020-01-16] MEDS ORDERED: ACETAMINOPHEN 325 MG TABLET (FP) ONE (13:08)
== END 2020-01-16 15:10 | disposition home or self-care (01) ==
LOC: FER 12:24
PROC: 2W3GX1Z Immobilization of Right Thumb using Splint (ICD-10-PCS; principal; 2020-01-16)
DX: S09.90XA Unspecified injury of head, initial encounter (principal); S63.502A Unspecified sprain of left wrist, initial encounter; S83.92XA Sprain of unspecified site of left knee, initial encounter
CPT/HCPCS: 70450-TC; 72125-TC; 73110-TC-LT-FY; 73130-TC-LT-FY; 73564-TC-LT-FY; 99285-25

== ENCOUNTER 2020-01-31 09:34 | Emergency (ER) | payer OTHER, MEDICARE ==
[2020-01-31 09:59] VITALS: BP 133/58; PULSE 70; TEMP 97.9; BMI 24.0
== END 2020-01-31 10:23 | disposition home or self-care (01) ==
LOC: FER 09:34
DX: L03.011 Cellulitis of right finger (principal)
CPT/HCPCS: 99282-25

== ENCOUNTER 2020-02-02 09:58 | Emergency (ER) | payer OTHER, MEDICARE ==
[2020-02-02 10:10] VITALS: BP 126/64; PULSE 71; TEMP 97.9; BMI 24.0
== END 2020-02-02 10:35 | disposition home or self-care (01) ==
LOC: FER 09:58
DX: Z48.00 Encounter for change or removal of nonsurgical wound dressing (principal)
CPT/HCPCS: 99281-25

== ENCOUNTER 2020-03-12 10:10 | Emergency (ER) | payer OTHER, MEDICARE ==
[2020-03-12 10:26] VITALS: BP 146/78; PULSE 70; TEMP 98; BMI 25.0
[2020-03-12 10:42] LABS: EPITHELIAL CELLS FEW /hpf
== END 2020-03-12 10:26 | disposition home or self-care (01) ==
LOC: FER 10:10
DX: N39.0 Urinary tract infection, site not specified (principal); R30.0 Dysuria; R35.0 Frequency of micturition; R10.2 Pelvic and perineal pain
CPT/HCPCS: 81003; 81015; 87086; 99284-25

== ENCOUNTER 2020-07-03 09:54 | Emergency (ER) | payer MEDICARE, OTHER ==
[2020-07-03 10:03] VITALS: BP 123/67; PULSE 84; TEMP 98.1; BMI 25.4
[2020-07-03] MEDS ORDERED: CEFTRIAXONE 1,000 MG in DEXTROSE 5%-WATER - 50 ML IVPB ONE (10:11)
[2020-07-03] MEDS ORDERED: cefTRIAXone SODIUM 1 GM VIAL ONE (10:41)
== END 2020-07-03 11:40 | disposition home or self-care (01) ==
LOC: FER 09:54
DX: L03.113 Cellulitis of right upper limb (principal); S61.451A Open bite of right hand, initial encounter
CPT/HCPCS: 73130-TC-RT-FY; 99284-25

== ENCOUNTER 2020-08-10 10:17 | Emergency (ER) | payer OTHER, MEDICARE ==
[2020-08-10] MEDS ORDERED: CIPROFLOXACIN 250 MG TABLET (RESTRICTED TO ID) PO ONE ×2 (10:31→10:39)
[2020-08-10 10:38] VITALS: BP 152/67; PULSE 94; TEMP 97.6; BMI 25.4
[2020-08-10 10:53] LABS: EPITHELIAL CELLS RARE /hpf
== END 2020-08-10 10:51 | disposition home or self-care (01) ==
LOC: FER 10:17
DX: R35.0 Frequency of micturition (principal); R30.0 Dysuria; N39.0 Urinary tract infection, site not specified
CPT/HCPCS: 81003; 81015; 87086; 99283-25

== ENCOUNTER 2020-10-30 19:19 | Emergency (ER) | payer OTHER, MEDICARE ==
[2020-10-30 19:27] VITALS: BP 179/94; PULSE 86; TEMP 97.8; BMI 25.0
[2020-10-30] MEDS ORDERED: ACETAMINOPHEN 500 MG TABLET (FP) PO ONE (19:31)
[2020-10-30] MEDS ORDERED: ACETAMINOPHEN 500 MG TABLET (FP) ONE (19:34)
== END 2020-10-30 20:46 | disposition home or self-care (01) ==
LOC: FER 19:19
DX: S62.101A Fracture of unspecified carpal bone, right wrist, initial encounter for closed fracture (principal); W01.0XXA Fall on same level from slipping, tripping and stumbling without subsequent striking against object, initial encounter
CPT/HCPCS: 73110-TC-RT-FY; 73560-TC-LT-FY; 73560-TC-RT-FY; 99284-25

== ENCOUNTER 2022-04-25 14:35 | Emergency (ER) | payer OTHER, MEDICARE ==
[2022-04-25] MEDS ORDERED: IBUPROFEN 600 MG TABLET (FP) PO ONE ×2 (15:24→15:41)
[2022-04-25 17:40] VITALS: BP 138/74; PULSE 72; RESP 18; TEMP 98.4; BMI 20.9
== END 2022-04-25 17:42 | disposition home or self-care (01) ==
LOC: FER 14:35
DX: M25.532 Pain in left wrist (principal); M54.2 Cervicalgia; W00.0XXA Fall on same level due to ice and snow, initial encounter
CPT/HCPCS: 70450-TC; 71046-TC-FY; 72125-TC; 72170-TC-FY; 73110-TC-LT-FY; 99285-25

== ENCOUNTER 2022-05-19 10:12 | Emergency (ER) | payer OTHER, MEDICARE ==
[2022-05-19 10:26] VITALS: BP 125/76; PULSE 65; RESP 18; TEMP 97.6; BMI 21.9
[2022-05-19] MEDS ORDERED: ACETAMINOPHEN 325 MG TABLET (FP) ONE (11:01)
[2022-05-19] MEDS ORDERED: ACETAMINOPHEN 325 MG TABLET (FP) PO ONE (11:01)
[2022-05-19 11:55] LABS: EPITHELIAL CELLS FEW /hpf
== END 2022-05-19 11:50 | disposition home or self-care (01) ==
LOC: FER 10:12
DX: S81.812A Laceration without foreign body, left lower leg, initial encounter (principal); M54.2 Cervicalgia; R30.0 Dysuria; R31.9 Hematuria, unspecified
CPT/HCPCS: 81003; 81015; 87086; 87186; 99283-25

== ENCOUNTER 2022-07-31 10:10 | Emergency (ER) | payer OTHER, MEDICARE ==
[2022-07-31 10:23] VITALS: BP 145/67; PULSE 69; RESP 18; TEMP 98; BMI 21.4
[2022-07-31] MEDS ORDERED: METHOCARBAMOL 500 MG TABLET PO ONE (10:40)
[2022-07-31] MEDS ORDERED: KETOROLAC TROMETHAMINE 30 MG/1 ML VIAL IM ONE (10:40)
[2022-07-31] MEDS ORDERED: LIDOCAINE 5% TOPICAL PATCH TP ONE (10:40)
[2022-07-31] MEDS ORDERED: LIDOCAINE 5% TOPICAL PATCH ONE (10:44)
[2022-07-31] MEDS ORDERED: METHOCARBAMOL 500 MG TABLET ONE (10:44)
[2022-07-31] MEDS ORDERED: KETOROLAC TROMETHAMINE 30 MG/1 ML VIAL ONE (10:44)
[2022-07-31] MEDS ORDERED: LIDOCAINE PATCH REMOVAL MC SCH (22:00)
== END 2022-07-31 11:30 | disposition home or self-care (01) ==
LOC: FER 10:10
PROC: 3E0233Z Introduction of Anti-inflammatory into Muscle, Percutaneous Approach (ICD-10-PCS; principal; 2022-07-31)
DX: S13.9XXA Sprain of joints and ligaments of unspecified parts of neck, initial encounter (principal); S60.912A Unspecified superficial injury of left wrist, initial encounter; R51.9 Headache, unspecified; V87.7XXA Person injured in collision between other specified motor vehicles (traffic), initial encounter; Y93.I9 Activity, other involving external motion; Y92.410 Unspecified street and highway as the place of occurrence of the external cause
CPT/HCPCS: 99284-25

== ENCOUNTER 2022-10-02 10:50 | Emergency (ER) | payer OTHER, MEDICARE ==
[2022-10-02 11:00] VITALS: BP 130/67; PULSE 66; RESP 16; TEMP 97.9; BMI 21.6
== END 2022-10-02 12:01 | disposition home or self-care (01) ==
LOC: FER 10:50
DX: R22.31 Localized swelling, mass and lump, right upper limb (principal); M79.601 Pain in right arm; L03.113 Cellulitis of right upper limb
CPT/HCPCS: 99283-25